=== PATIENT | male | born 1970 | race African-American/Black ===

== ENCOUNTER 2020-08-15 17:01 | Inpatient (IN) | payer OTHER ==
--- OUTSIDE RECORDS SUMMARY | 2020-08-15 17:13 | XMS ---
:1970 Author Organization [facility] Support Name Relationship Address Phone UE Unavailable Unavailable Unavailable SIMON GALLARDO SISTER [address] [phone] [place] [address] Re-disclosure Warning The records that you are about to access may contain information from federally- assisted alcohol or drug abuse programs. If such information is present, then the following federally mandated warning applies: This information has been disclosed to you from records protected by federal confidentiality rules (42 CFR part 2). The federal rules prohibit you from making any further disclosure of this information unless further disclosure is expressly permitted by the written consent of the person to whom it pertains or as otherwise permitted by 42 CFR part 2. A general authorization for the release of medical or other information is NOT sufficient for this purpose. The Federal rules restrict any use of the information to criminally investigate or prosecute any alcohol or drug abuse patient.The records that you are about to access may contain highly sensitive health information, the redisclosure of which is protected by Article 27-F of the [facility] Public Health law. If you continue you may haveaccess to information: Regarding HIV / AIDS; Provided by facilities licensed or operated by the [facility] Office of Mental Health; or Provided by the [facility] Office for People With Developmental Disabilities. If such information is present, then the following [facility] mandated warning applies: This information has been disclosed to you from confidential records which are protected by state law. State law prohibits you from making any further disclosure of this information without the specific written consent of the person to whom it pertains, or as otherwise permitted by law. Any unauthorized further disclosure in violation of state law may result in a fine or residential sentence or both. A general authorization for the release of medical or other information is NOT sufficient authorization for further disclosure. Insurance Providers Payer name Policy type Policy ID Covered Covered republican's Policy P klaudia / Coverage republican ID relationship to Jama Inf ormation type jama SELF PAY INSURANCE [place] [id number] [facility] Medicaid [id number] Regular Clinic Visit [place] [id number] S [id number] Healthcare [facility]D Community Plan Problems, Conditions, and Diagnoses Code Display Name Description Problem Type Effective Dates Data Source(s) M54.5 Low back pain Low back pain Diagnosis 01/23/2019 [place] ([facility] 06:49:14 PM [facility]) Results ID Date Data Source [id number] 05/02/2020 12:30:00 PM EDT [facility] Name Value Range Interpretation Description Data Sup porting Code Source(s) Document(s ) SARS [facility] CORONAVIRUS 2 RNA This lab was ordered by [facility] Milton Delgado and reported by [facility]. ID Date Data Source [id number] 04/16/2020 12:04:00 AM EDT [facility] Name Value Range Interpretation Code Description Data Sirisha rce(s) Supporting Document(s ) COV2 [facility] This lab was ordered by JOVAN gonzalez nd reported by [facility]. Procedure
--- NOTE | 2020-08-15 18:38 | BHS.RME ---
Substance Use & Tx History - Substance Use History Alcohol Substance amount: 1 pint Vodka Frequency of use: Daily Substance route: Oral Date of Last Use: 08/15/20 - Last Treatment Date of last treatment: 05/02/2020-05/05/2020 Treatment type: Substance Use Disorder (LEXI) Where was last treatment: Detox Physical/Psych/Mental Status - Behavior Eye Contact: Normal - Cooperativeness Cooperativeness: Cooperative - Thinking Thought Processes: Logical Thought content: Future oriented - Physical Health Problems Is patient presently having any pain?: No Does patient presently have any injuries (include location): No Does patient currently have a fever: No Is patient : No CIWA Nausea/Vomitin Muscle Tremors: 4-Moderate,w/Arms Extend Anxiety: 3 Agitation: 3 Paroxysmal Sweats: 2 Orientation: 0-Oriented Tacttile Disturbances: 0-None Auditory Disturbances: 0-None Visual Disturbances: 0-None Headache: 3-Moderate CIWA-Ar Total Score: 17 Treatment Recommendation - Level of Care Level of Care: Opioid Treatment Program (OTP) (Alcohol detoxification- on Methadone maintenance therapy)
--- NOTE | 2020-08-15 20:55 | HP ---
CIWA Score Nausea/Vomitin Muscle Tremors: 4-Moderate,w/Arms Extend Anxiety: 3 Agitation: 3 Paroxysmal Sweats: 2 Orientation: 0-Oriented Tacttile Disturbances: 0-None Auditory Disturbances: 0-None Visual Disturbances: 0-None Headache: 3-Moderate CIWA-Ar Total Score: 17 - Admission Criteria OASAS Guidelines: Admission for Medically Managed Detox: Requires at least one of the followin. CIWA greater than 12 2. Seizures within the past 24 hours 3. Delirium tremens within the past 24 hours 4. Hallucinations within the past 24 hours 5. Acute intervention needed for co occurring medical disorder 6. Acute intervention needed for co occurring psychiatric disorder 7. Severe withdrawal that cannot be handled at a lower level of care (continued vomiting, continued diarrhea, abnormal vital signs) requiring intravenous medication and/or fluids 8. Admitting History and Physical - Past Medical History Musculoskeletal: Yes: Chronic low back pain Rheumatology: Yes: Other (Osteoarthritis) - Past Surgical History Past Surgical History: Yes: None - Smoking History Smoking history: Former smoker Have you smoked in the past 12 months: Yes Aproximately how many cigarettes per day: 0 - Alcohol/Substance Use Hx Alcohol Use: No History of Substance Use: reports: Heroin, Tranquilizers - Social History ADL: Independent Occupation: highway maintenance supervisor History of Recent Travel: No Admission ROS [facility] - HPI Chief Complaint: Seeking admission to detox from alcohol, on Methadone maintenance therapy Allergies/Adverse Reactions: Allergies Allergy/AdvReac Type Severity Reaction Status Date / Time Fish Containing Products Allergy Severe Difficulty Verified 08/15/20 21:32 Breathing History of Present Illness: 49 years old male with a long history of alcohol dependence is seeking admission to detox. His last admission was for the period 05/02/2020 - 05/05/2020 and he reports that he relapsed in May 2020. He drinks 1 pint of vodka daily. He has medical history of hypertension, GERD, anemia, Gonorrhea, osteoarthritis, psych. history of depression, anxiety, insomnia and he denies suicidal ideation at this time. He is employed in maintenance, lives alone and denies legal issues. 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 He is on Methadone 60mg oral daily. Dose is yet to be confirmed by the nurse. Exam Limitations: No Limitations - Ebola screening Have you traveled outside of the country in the last 21 days: No Have you had contact with anyone from an Ebola affected area: No Have you been sick,other than usual withdrawal symptoms: No Do you have a fever: No - Review of Systems Constitutional: Chills, Malaise, Night Sweats, Changes in sleep EENT: reports: No Symptoms Reported Respiratory: reports: No Symptoms reported Cardiac: reports: No Symptoms Reported GI: reports: Constipated, Poor Appetite, Poor Fluid Intake, Abdominal cramping : reports: No Symptoms Reported Musculoskeletal: reports: Other (abdominal pain) Integumentary: reports: Dryness, Flushing Neuro: reports: Headache, Tremors Endocrine: reports: No Symptoms Reported Hematology: reports: No Symptoms Reported Psychiatric: reports: Orientated x3, Anxious Other Systems: Reviewed and Negative Patient History - Patient Medical History Hx Anemia: Yes (Not on medication) Hx Asthma: No Hx Chronic Obstructive Pulmonary Disease (COPD): No Hx Cancer: No Hx Cardiac Disorders: No Hx Congestive Heart Failure: No Hx Hypertension: Yes (Not on medication) Hx Hypercholesterolemia: No Hx Pacemaker: No HX Cerebrovascular Accident: No Hx Seizures: Yes (alcohol related-last episode was in 06/2020) Hx Dementia: No Hx Diabetes: No Hx Gastrointestinal Disorders: Yes (GERD- Not on medication) Hx Liver Disease: No Hx Genitourinary Disorders: No Hx Sexually Transmitted Disorders: Yes (Gonorrhea at age 16- Not treatment) Hx Renal Disease (ESRD): No Hx Thyroid Disease: No Hx Human Immunodeficiency Virus (HIV): No (Negative 2019) Hx Hepatitis C: No Hx Depression: Yes (Not on medication) Hx Suicide Attempt: No (Denies suicidal ideation ) Hx Bipolar Disorder: No Hx Schizophrenia: No - Patient Surgical History Past Surgical History: No Hx Neurologic Surgery: No Hx Cataract Extraction: No Hx Cardiac Surgery: No Hx Lung Surgery: No Hx Breast Surgery: No Hx Breast Biopsy: No Hx Abdominal Surgery: No Hx Appendectomy: No Hx Cholecystectomy: No Hx Genitourinary Surgery: No Hx Section: No Hx Orthopedic Surgery: No Anesthesia Reaction: No - PPD History Date: 05/04/20 Results: 0mm - Smoking Cessation Smoking history: Former smoker Have you smoked in the past 12 months: No Aproximately how many cigarettes per day: 0 Cigars Per Day: 0 Hx Chewing Tobacco Use: No Initiated information on smoking cessation: No Admission Physical Exam BHS - Physical General Appearance: Yes: Moderate Distress, Tremorous, Anxious HEENTM: Yes: Within Normal Limits Respiratory: Yes: Lungs Clear, Normal Breath Sounds, No Respiratory Distress Neck: Yes: Within Normal Limits Breast: Yes: Breast Exam Deferred Cardiology: Yes: Regular Rhythm, Regular Rate Genitourinary: Yes: Within Normal Limits Back: Yes: Normal Inspection Musculoskeletal: Yes: Back pain, Muscle Pain Extremities: Yes: Tremors Neurological: Yes: Within Normal Limits Integumentary: Yes: Warm Lymphatic: Yes: Within Normal Limits - Diagnostic (1) Alcohol dependence with withdrawal, uncomplicated Current Visit: Yes Status: Acute (2) GERD (gastroesophageal reflux disease) Current Visit: Yes Status: Chronic Qualifiers: Esophagitis presence: esophagitis presence not specified Qualified Code(s): K21.9 - Gastro-esophageal reflux disease without esophagitis (3) Alcohol related seizure Current Visit: Yes Status: Chronic (4) Gonorrhea Current Visit: Yes Status: Chronic (5) Depression Current Visit: Yes Status: Chronic Qualifiers: Depression Type: unspecified Qualified Code(s): F32.9 - Major depressive disorder, single episode, unspecified (6) Anxiety Current Visit: No Status: Acute (7) Hypertension Current Visit: Yes Status: Chronic Qualifiers: Hypertension type: essential hypertension Qualified Code(s): I10 - Essential (primary) hypertension (8) Nicotine dependence Current Visit: Yes Status: Chronic Qualifiers: Nicotine product type: cigarettes Substance use status: uncomplicated Qualified Code(s): F17.210 - Nicotine dependence, cigarettes, uncomplicated (9) Methadone maintenance therapy patient Current Visit: Yes Status: Chronic (10) Anemia Current Visit: Yes Status: Chronic Qualifiers: Anemia type: iron deficiency (11) Insomnia Current Visit: Yes Status: Chronic Qualifiers: Insomnia type: unspecified Qualified Code(s): G47.00 - Insomnia, unspecified (12) Osteoarthritis Current Visit: Yes Status: Chronic Qualifiers: Osteoarthritis location: unspecified site Osteoarthritis type: unspecified Qualified Code(s): M19.90 - Unspecified osteoarthritis, unspecified site Cleared for Admission [facility] - Detox or Rehab [facility] Level of Care: Medically Managed Detox Regimen/Protocol: Librium Claeared for Rehab Admission: No Breathalyzer - Breathalyzer Breathalyzer: 0.027 Urine Drug Screen - Test Device Lot number: [id number] Expiration date: 07/21/21 - Control Is test valid?: Yes - Results Drug screen NEGATIVE: No Urine drug screen results: FEN-Fentanyl, MOP-Opiates, MTD-Methadone, BZO- Benzodiazepines Inpatient Rehab Admission - Rehab Decision to Admit Inpatient rehab admission?: No
[2020-08-15] MEDS ORDERED: MAGNESIUM CITRATE 300 ML BOTTLE PO PRN (21:13)
[2020-08-15] MEDS ORDERED: MAG HYDROX/AL HYDROX/SIMETH 30 ML UNIT-DOSE CUP PO PRN (21:13)
[2020-08-15] MEDS ORDERED: NICOTINE POLACRILEX 2 MG GUM BUC PRN (21:13)
[2020-08-15] MEDS ORDERED: ONDANSETRON *ODT* 4 MG TABLET SL PRN (21:13)
[2020-08-15] MEDS ORDERED: IBUPROFEN 400 MG TABLET (FP) PO PRN (21:13)
[2020-08-15] MEDS ORDERED: MENTHOL/PHENOL 1 EACH UD MM PRN (21:13)
[2020-08-15] MEDS ORDERED: ACETAMINOPHEN 325 MG TABLET (FP) PO PRN ×2 (21:13)
[2020-08-15] MEDS ORDERED: BISMUTH SUBSALICYLATE 524 MG/30 ML UD PO PRN (21:13)
[2020-08-15] MEDS ORDERED: MAGNESIUM HYDROX 2400MG/30ML ORAL SUSPENSION 30 ML CUP PO PRN (21:13)
[2020-08-15] MEDS ORDERED: chlordiazePOXIDE HCL 25 MG CAPSULE PO PRN (21:13)
[2020-08-15 22:08] VITALS: BMI 23.5
[2020-08-15] MEDS: THIAMINE HCL 100 MG TABLET (FP) PO SCH (23:12)
[2020-08-15] MEDS: chlordiazePOXIDE HCL 25 MG CAPSULE PO SCH (23:12)
[2020-08-15] MEDS: MELATONIN 5 MG TABLETS PO SCH (23:13)
[2020-08-16] MEDS: chlordiazePOXIDE HCL 25 MG CAPSULE PO SCH ×4 (06:15→22:18)
[2020-08-16] MEDS: NICOTINE 14 MG/24 HOURS TOPICAL PATCH TD SCH (10:39)
[2020-08-16] MEDS: PRENATAL VITAMINS W/ FOLIC ACID TABLET (FP) PO SCH (10:39)
[2020-08-16] MEDS: METHOCARBAMOL 500 MG TABLET PO PRN (10:40)
[2020-08-16] MEDS: hydrOXYzine PAMOATE 25 MG CAPSULE (FP) PO PRN (10:40)
[2020-08-16] MEDS ORDERED: METHADONE HCL 40 MG DISPERSABLE TABLET PO SCH (11:00)
[2020-08-16] MEDS ORDERED: METHADONE HCL 10 MG TABLET ONE (11:23)
[2020-08-16] MEDS ORDERED: METHADONE HCL 40 MG DISPERSABLE TABLET ONE (11:24)
[2020-08-16] MEDS: METHADONE 40 MG, METHADONE 20 MG PO SCH (11:28)
[2020-08-16 11:49] LABS: HEMATOCRIT 35.6 % (35.4-49); HEMOGLOBIN 11.6 GM/dL (11.7-16.9); MCH 31.9 pg (25.7-33.7); MCHC 32.7 g/dl (32.0-35.9); MEAN CELL VOLUME 97.7 fl (80-96); MEAN PLT VOLUME 8.2 fl (7.5-11.1); PLATELET COUNT 247 K/MM3 (134-434); RBC 3.65 M/mm3 (4.00-5.60); RDW 13.5 % (11.9-15.9); WHITE BLOOD COUNT 4.5 K/mm3 (4.0-10.0)
[2020-08-16 11:55] LABS: ALBUMIN 3.2 g/dl (3.4-5.0); BILIRUBIN,TOTAL 0.3 mg/dL (0.2-1); BLOOD UREA NITROGEN 20.5 mg/dL (7-18); CALCIUM 8.6 mg/dL (8.5-10.1); CREATININE 1.2 mg/dL (0.55-1.3); POTASSIUM 4.4 mmol/L (3.5-5.1); TOT PROT 6.2 g/dl (6.4-8.2)
--- NOTE | 2020-08-16 12:25 | PN ---
S CIWA - CIWA Score Nausea/Vomitin-No Nausea/No Vomiting Muscle Tremors: 2 Anxiety: 3 Agitation: 0-Normal Activity Paroxysmal Sweats: 3 Orientation: 0-Oriented Tacttile Disturbances: 0-None Auditory Disturbances: 0-None Visual Disturbances: 0-None Headache: 2-Mild CIWA-Ar Total Score: 10 BHS Progress Note (SOAP) Subjective: c/o anxiety, sweats, and headache. Objective: 08/16/20 12:24 Laboratory Last Values WBC 4.5 K/mm3 (4.0-10.0) 08/16/20 07:50 RBC 3.65 M/mm3 (4.00-5.60) L 08/16/20 07:50 Hgb 11.6 GM/dL (11.7-16.9) L 08/16/20 07:50 Hct 35.6 % (35.4-49) 08/16/20 07:50 MCV 97.7 fl (80-96) H 08/16/20 07:50 MCH 31.9 pg (25.7-33.7) 08/16/20 07:50 MCHC 32.7 g/dl (32.0-35.9) 08/16/20 07:50 RDW 13.5 % (11.9-15.9) 08/16/20 07:50 Plt Count 247 K/MM3 (134-434) 08/16/20 07:50 MPV 8.2 fl (7.5-11.1) 08/16/20 07:50 Sodium 141 mmol/L (136-145) 08/16/20 07:50 Potassium 4.4 mmol/L (3.5-5.1) 08/16/20 07:50 Chloride 104 mmol/L (98-107) 08/16/20 07:50 Carbon Dioxide 33 mmol/L (21-32) H 08/16/20 07:50 Anion Gap 4 MMOL/L (8-16) L 08/16/20 07:50 BUN 20.5 mg/dL (7-18) H 08/16/20 07:50 Creatinine 1.2 mg/dL (0.55-1.3) 08/16/20 07:50 Est GFR (CKD-EPI)AfAm 81.23 08/16/20 07:50 Est GFR (CKD-EPI)NonAf 70.09 08/16/20 07:50 Random Glucose 88 mg/dL (74-106) 08/16/20 07:50 Calcium 8.6 mg/dL (8.5-10.1) 08/16/20 07:50 Total Bilirubin 0.3 mg/dL (0.2-1) 08/16/20 07:50 AST 10 U/L (15-37) L 08/16/20 07:50 ALT 13 U/L (13-61) 08/16/20 07:50 Alkaline Phosphatase 46 U/L (45-117) 08/16/20 07:50 Total Protein 6.2 g/dl (6.4-8.2) L 08/16/20 07:50 Albumin 3.2 g/dl (3.4-5.0) L 08/16/20 07:50 Labs noted. Assessment: 08/16/20 12:24 AOX3, in no acute respiratory distress. Full ROM, ambulating in the unit. Withdrawal symptoms. Plan: continue detox.
--- NOTE | 2020-08-16 12:52 | CONSULT ---
[facility] Psychiatric Consult - Data Date of interview: 08/16/20 Admission source: [facility] Identifying data: Revisit to [facility] and admission to [address] [place] [address] for this 49 y/o AA male self-referred for detoxification treatment. LEXI issues (as per self- report) : heroin, benzodiazepine (xanax bought from street dealers), alcohol, nicotine. Patient is single, a father of two, domiciled and currently employed. Lives indepedently in [place]. Substance Abuse History: Discussed with the patient. LEXI profile as follows : Smoking history: Former smoker. Have you smoked in the past 12 months: Yes. Approximately how many cigarettes per day: 0. Alcohol/Substance Use. Hx Alcohol Use: yes. Patient reports that he consumes 1-2 pints of vodka daily. Started during childhood (age 9-12). Used alcohol prior to this [facility] visit. History of Substance Use: reports: Heroin, Tranquilizers. Admits to using 2 bags of heroin on a daily basis in spite of being on methadone maintenance (60 mg/day) at the [facility] in [facility]. Buys xanax in the streets. Presents a pattern of multiple LEXI treatment failures. Medical History: Medical profile is remarkable for chronic lumbar pain, osteoarthritis, GERD, antecedent of alcohol withdrawal-related seizures, anemia and history of gonorrhea (age 16). Psychiatric History: Patient denies history of psychiatric hospitalizations. He admits to using xanax (bought in the streets) to address anxiety. Mr Real reports that his former primary care physician, Dr Bunn, had diagnosed him with Anxiety Disorder and " suggested " that he sees a psychiatrist for benzodia zepine scripts. Currently, the patient is on methadone maintenance (60 mg/day) at [facility] in [facility]. Not on any other psychotropic medication. Patient denies history of suicide attempts. Physical/Sexual Abuse/Trauma History: Patient denies. Additional Comment: Urine drug screen results: FEN-Fentanyl, MOP-Opiates, MTD- Methadone, BZO-Benzodiazepines. Noted. Mental Status Exam - Mental Status Exam Alert and Oriented to: Time, Place, Person Cognitive Function: Good Patient Appearance: Well Groomed Mood: Hopeful Affect: Appropriate, Normal Range Patient Behavior: Fatigued, Appropriate, Cooperative Speech Pattern: Clear, Appropriate Voice Loudness: Normal Thought Process: Intact, Goal Oriented Thought Disorder: Not Present Hallucinations: Denies Suicidal Ideation: Denies Homicidal Ideation: Denies Insight/Judgement: Poor Sleep: Fair Appetite: Good Gait/Station: Normal Psychiatric Findings - Problem List ([place] 1, 2,3) (1) Alcohol dependence with withdrawal, uncomplicated Current Visit: Yes Status: Acute (2) Opioid dependence on agonist therapy Current Visit: Yes Status: Chronic (3) Benzodiazepine abuse Current Visit: Yes Status: Chronic (4) Substance induced mood disorder Current Visit: Yes Status: Chronic (5) Insomnia Current Visit: Yes Status: Chronic Qualifiers: Insomnia type: unspecified Qualified Code(s): G47.00 - Insomnia, unspecified - Initial Treatment Plan Initial Treatment Plan: Psychoeducation. Sleep hygiene. Motivational counseling. Insomnia is addressed with melatonin at bedtime (with patient's consent). Detoxification in progress. Observation.
--- NOTE | 2020-08-16 16:14 | EKG ---
Test Reason : Blood Pressure : / mmHG Vent. Rate : 055 BPM Atrial Rate : 055 BPM P-R Int : 144 ms QRS Dur : 086 ms QT Int : 440 ms P-R-T Axes : 065 066 033 degrees QTc Int : 420 ms SINUS BRADYCARDIA MINIMAL VOLTAGE CRITERIA FOR LVH, MAY BE NORMAL VARIANT BORDERLINE ECG NO PREVIOUS ECGS AVAILABLE Confirmed by MD Eleuterio, Jb ([id number]) on 08/16/2020 4:14:12 PM Referred By: Chandler Murcia Confirmed By:Jb Mcclellan MD
[2020-08-16] MEDS: THIAMINE HCL 100 MG TABLET (FP) PO SCH (22:18)
[2020-08-16] MEDS: MELATONIN 5 MG TABLETS PO SCH (22:19)
[2020-08-17] MEDS ORDERED: METHADONE HCL 10 MG TABLET ONE (04:26)
[2020-08-17] MEDS ORDERED: METHADONE HCL 40 MG DISPERSABLE TABLET ONE (04:27)
[2020-08-17] MEDS: METHADONE 40 MG, METHADONE 20 MG PO SCH (06:52)
[2020-08-17] MEDS: chlordiazePOXIDE HCL 25 MG CAPSULE PO SCH ×4 (06:52→22:06)
[2020-08-17] MEDS: METHOCARBAMOL 500 MG TABLET PO PRN (10:08)
[2020-08-17] MEDS: PRENATAL VITAMINS W/ FOLIC ACID TABLET (FP) PO SCH (10:08)
[2020-08-17] MEDS: NICOTINE 14 MG/24 HOURS TOPICAL PATCH TD SCH (10:08)
--- NOTE | 2020-08-17 14:48 | PN ---
S CIWA - CIWA Score Nausea/Vomitin-Mild Nausea/No Vomiting Muscle Tremors: 2 Anxiety: 2 Agitation: 0-Normal Activity Paroxysmal Sweats: No Perspiration Orientation: 0-Oriented Tacttile Disturbances: 0-None Auditory Disturbances: 0-None Visual Disturbances: 2-Mild Sensitivity Headache: 2-Mild CIWA-Ar Total Score: 9 BHS Progress Note (SOAP) Subjective: 49 years old male was admitted on 08/05/20 for alcohol withdrawal sx management treating with librium detox regiment receiver[facility] methadone 60 mg po today feels better today ate breakfast and lunch in room social with peers in day room encourage reflect on current relaps and step toward prevention mr kim prefers returning to methadone program for behavior and psychosocial therapies Objective: 08/17/20 14:50 Vital Signs - 24 hr 08/16/20 08/16/20 08/17/20 16:46 20:34 05:46 Temperature 97.7 F 97.1 F L 97.5 F L Pulse Rate 60 67 51 L Respiratory 18 18 18 Rate Blood Pressure 122/86 115/77 125/83 O2 Sat by Pulse 97 98 Oximetry (%) 08/17/20 08/17/20 08:36 12:32 Temperature 97.1 F L 97.1 F L Pulse Rate 60 68 Respiratory 18 18 Rate Blood Pressure 126/80 125/81 O2 Sat by Pulse 98 Oximetry (%) Laboratory Tests 08/16/20 08/16/20 08/16/20 07:50 07:50 07:50 WBC 4.5 RBC 3.65 L Hgb 11.6 L Hct 35.6 MCV 97.7 H MCH 31.9 MCHC 32.7 RDW 13.5 Plt Count 247 MPV 8.2 Sodium 141 Potassium 4.4 Chloride 104 Carbon Dioxide 33 H Anion Gap 4 L BUN 20.5 H Creatinine 1.2 Est GFR (CKD-EPI)AfAm 81.23 Est GFR (CKD-EPI)NonAf 70.09 Random Glucose 88 Calcium 8.6 Total Bilirubin 0.3 AST 10 L ALT 13 Alkaline Phosphatase 46 Total Protein 6.2 L Albumin 3.2 L Syphilis Serology Non-reactive COVID-19 (RONNIE) 08/16/20 08:20 WBC RBC Hgb Hct MCV MCH MCHC RDW Plt Count MPV Sodium Potassium Chloride Carbon Dioxide Anion Gap BUN Creatinine Est GFR (CKD-EPI)AfAm Est GFR (CKD-EPI)NonAf Random Glucose Calcium Total Bilirubin AST ALT Alkaline Phosphatase Total Protein Albumin Syphilis Serology COVID-19 (RONNIE) Not detected lab noted Assessment: 08/17/20 14:50 alcohol withdrawal Plan: librium regiment
[2020-08-17] MEDS: hydrOXYzine PAMOATE 25 MG CAPSULE (FP) PO PRN (16:48)
[2020-08-17] MEDS: MELATONIN 5 MG TABLETS PO SCH (22:06)
[2020-08-17] MEDS: THIAMINE HCL 100 MG TABLET (FP) PO SCH (22:06)
[2020-08-18] MEDS ORDERED: chlordiazePOXIDE HCL 10 MG CAPSULE PO PRN
[2020-08-18] MEDS ORDERED: METHADONE HCL 10 MG TABLET ONE (04:17)
[2020-08-18] MEDS ORDERED: METHADONE HCL 40 MG DISPERSABLE TABLET ONE (04:17)
[2020-08-18] MEDS: METHADONE 40 MG, METHADONE 20 MG PO SCH (05:36)
[2020-08-18] MEDS: chlordiazePOXIDE HCL 10 MG CAPSULE PO SCH ×4 (05:36→22:27)
[2020-08-18] MEDS: PRENATAL VITAMINS W/ FOLIC ACID TABLET (FP) PO SCH (10:00)
[2020-08-18] MEDS: NICOTINE 14 MG/24 HOURS TOPICAL PATCH TD SCH (10:00)
--- NOTE | 2020-08-18 13:21 | PN ---
S CIWA - CIWA Score Nausea/Vomitin-No Nausea/No Vomiting Muscle Tremors: 2 Anxiety: 2 Agitation: 0-Normal Activity Paroxysmal Sweats: No Perspiration Orientation: 0-Oriented Tacttile Disturbances: 0-None Auditory Disturbances: 0-None Visual Disturbances: 1-Very Mild Sensitivity Headache: 1-Very Mild CIWA-Ar Total Score: 6 BHS Progress Note (SOAP) Subjective: 49 years old male was admitted on 08/15/20 for alcohol withdrawal sx management treating with librium detox regiment feels better today ate breakfast and lunch in room social with peers in day room mr kim prefers returning to his methadone program for behavioral and psychosocial therapies Objective: 08/18/20 13:25 Vital Signs - 24 hr 08/17/20 08/17/20 08/18/20 16:42 20:43 06:20 Temperature 97.5 F L 98.2 F 97.5 F L Pulse Rate 98 H 97 H 52 L Respiratory 18 18 18 Rate Blood Pressure 126/83 125/78 125/82 O2 Sat by Pulse 98 98 99 Oximetry (%) 08/18/20 09:07 Temperature 97.8 F Pulse Rate 66 Respiratory 18 Rate Blood Pressure 126/81 O2 Sat by Pulse 99 Oximetry (%) Laboratory Tests 08/16/20 08/16/20 08/16/20 07:50 07:50 07:50 WBC 4.5 RBC 3.65 L Hgb 11.6 L Hct 35.6 MCV 97.7 H MCH 31.9 MCHC 32.7 RDW 13.5 Plt Count 247 MPV 8.2 Sodium 141 Potassium 4.4 Chloride 104 Carbon Dioxide 33 H Anion Gap 4 L BUN 20.5 H Creatinine 1.2 Est GFR (CKD-EPI)AfAm 81.23 Est GFR (CKD-EPI)NonAf 70.09 Random Glucose 88 Calcium 8.6 Total Bilirubin 0.3 AST 10 L ALT 13 Alkaline Phosphatase 46 Total Protein 6.2 L Albumin 3.2 L Syphilis Serology Non-reactive COVID-19 (RONNIE) 08/16/20 08:20 WBC RBC Hgb Hct MCV MCH MCHC RDW Plt Count MPV Sodium Potassium Chloride Carbon Dioxide Anion Gap BUN Creatinine Est GFR (CKD-EPI)AfAm Est GFR (CKD-EPI)NonAf Random Glucose Calcium Total Bilirubin AST ALT Alkaline Phosphatase Total Protein Albumin Syphilis Serology COVID-19 (RONNIE) Not detected lab noted Assessment: 08/18/20 13:26 alcohol withdrawal Plan: librium regiment
[2020-08-18] MEDS: hydrOXYzine PAMOATE 25 MG CAPSULE (FP) PO PRN (16:48)
[2020-08-18] MEDS: METHOCARBAMOL 500 MG TABLET PO PRN (16:48)
[2020-08-18] MEDS: THIAMINE HCL 100 MG TABLET (FP) PO SCH (22:27)
[2020-08-18] MEDS: MELATONIN 5 MG TABLETS PO SCH (22:28)
[2020-08-19] MEDS ORDERED: METHADONE HCL 10 MG TABLET ONE (03:33)
[2020-08-19] MEDS ORDERED: METHADONE HCL 40 MG DISPERSABLE TABLET ONE (03:34)
[2020-08-19] MEDS ORDERED: chlordiazePOXIDE HCL 10 MG CAPSULE PO SCH (05:00)
[2020-08-19] MEDS: METHADONE 40 MG, METHADONE 20 MG PO SCH (05:14)
[2020-08-19 08:59] VITALS: BP 147/99; PULSE 60; TEMP 96.9
--- NOTE | 2020-08-19 09:51 | DS ---
[facility] Detox Discharge Summary Admission Date: 08/15/20 Discharge Date: 08/19/20 - History Present History: Alcohol Dependence, MMTP Additional Comments: alert,oriented x 3 ambulation on the unit lung clear on auscultation bilaterally abdomen soft,no pain,no distension no edema of leg no withdrawal symptom stable for discharge today follow up with methadone maintenance clinic total time of discharge 40 minutes lef tthe unit in stable condition has medication at home Pertinent Past History: alcohol related seizure nicotine dependence hypertension - Physical Exam Results Vital Signs: Vital Signs Temperature 96.9 F L 08/19/20 08:58 Pulse Rate 60 08/19/20 08:58 Respiratory Rate 16 08/19/20 08:58 Blood Pressure 147/99 08/19/20 08:58 O2 Sat by Pulse Oximetry (%) 98 08/19/20 08:58 Pertinent Admission Physical Exam Findings: withdrawal signs and symptom Vital Signs Temperature 96.9 F L 08/19/20 08:58 Pulse Rate 60 08/19/20 08:58 Respiratory Rate 16 08/19/20 08:58 Blood Pressure 147/99 08/19/20 08:58 O2 Sat by Pulse Oximetry (%) 98 08/19/20 08:58 Laboratory Last Values WBC 4.5 K/mm3 (4.0-10.0) 08/16/20 07:50 RBC 3.65 M/mm3 (4.00-5.60) L 08/16/20 07:50 Hgb 11.6 GM/dL (11.7-16.9) L 08/16/20 07:50 Hct 35.6 % (35.4-49) 08/16/20 07:50 MCV 97.7 fl (80-96) H 08/16/20 07:50 MCH 31.9 pg (25.7-33.7) 08/16/20 07:50 MCHC 32.7 g/dl (32.0-35.9) 08/16/20 07:50 RDW 13.5 % (11.9-15.9) 08/16/20 07:50 Plt Count 247 K/MM3 (134-434) 08/16/20 07:50 MPV 8.2 fl (7.5-11.1) 08/16/20 07:50 Sodium 141 mmol/L (136-145) 08/16/20 07:50 Potassium 4.4 mmol/L (3.5-5.1) 08/16/20 07:50 Chloride 104 mmol/L (98-107) 08/16/20 07:50 Carbon Dioxide 33 mmol/L (21-32) H 08/16/20 07:50 Anion Gap 4 MMOL/L (8-16) L 08/16/20 07:50 BUN 20.5 mg/dL (7-18) H 08/16/20 07:50 Creatinine 1.2 mg/dL (0.55-1.3) 08/16/20 07:50 Est GFR (CKD-EPI)AfAm 81.23 08/16/20 07:50 Est GFR (CKD-EPI)NonAf 70.09 08/16/20 07:50 Random Glucose 88 mg/dL (74-106) 08/16/20 07:50 Calcium 8.6 mg/dL (8.5-10.1) 08/16/20 07:50 Total Bilirubin 0.3 mg/dL (0.2-1) 08/16/20 07:50 AST 10 U/L (15-37) L 08/16/20 07:50 ALT 13 U/L (13-61) 08/16/20 07:50 Alkaline Phosphatase 46 U/L (45-117) 08/16/20 07:50 Total Protein 6.2 g/dl (6.4-8.2) L 08/16/20 07:50 Albumin 3.2 g/dl (3.4-5.0) L 08/16/20 07:50 Syphilis Serology Non-reactive (NONREACTIVE) 08/16/20 07:50 COVID-19 (RONNIE) Not detected (Not Detected) 08/16/20 08:20 - Treatment Hospital Course: Detox Protocol Followed, Detoxed Safely, Responded well, Discharged Condition Good Patient has Accepted a Rehab Referral to: declined - Medication Discharge Medications: Ambulatory Orders Metoprolol/Hydrochlorothiazide [Metoprolol-Hctz 100-25 mg Tab] 1 each PO DAILY 05/02/20 - Diagnosis (1) Alcohol dependence with withdrawal, uncomplicated Status: Acute (2) Alcohol related seizure Status: Chronic (3) Hypertension Status: Chronic Qualifiers: Hypertension type: essential hypertension Qualified Code(s): I10 - Essential (primary) hypertension (4) Opioid dependence on agonist therapy Status: Chronic (5) Hypertension Status: Acute - AMA Did Patient Leave Against Medical Advice: No
--- NOTE | 2020-08-19 09:51 | PN ---
[facility] CIWA - CIWA Score Nausea/Vomitin-No Nausea/No Vomiting Muscle Tremors: None Anxiety: 1-Mildly Anxious Agitation: 0-Normal Activity Paroxysmal Sweats: No Perspiration Orientation: 0-Oriented Tacttile Disturbances: 0-None Auditory Disturbances: 0-None Visual Disturbances: 0-None Headache: 0-None Present CIWA-Ar Total Score: 1 S Progress Note (SOAP) Subjective: alert,no complaint Objective: 08/19/20 17:07 Vital Signs Temperature 96.9 F L 08/19/20 08:58 Pulse Rate 60 08/19/20 08:58 Respiratory Rate 16 08/19/20 08:58 Blood Pressure 147/99 08/19/20 08:58 O2 Sat by Pulse Oximetry (%) 98 08/19/20 08:58 08/19/20 17:07 no withdrawal symptom Assessment: 08/19/20 17:08 no withdrawal symptom Plan: stable for discharge today,follow up with methadone maintenance clinic
[2020-08-19] MEDS ORDERED: METOPROLOL TARTRATE 50 MG TABLET (FP) PO SCH (10:00)
[2020-08-19] MEDS ORDERED: HYDROCHLOROTHIAZIDE 25 MG TABLET (FP) PO SCH (10:00)
[2020-08-19] MEDS: PRENATAL VITAMINS W/ FOLIC ACID TABLET (FP) PO SCH (10:33)
[2020-08-19] MEDS: NICOTINE 14 MG/24 HOURS TOPICAL PATCH TD SCH (10:33)
[2020-08-20] MEDS ORDERED: chlordiazePOXIDE HCL 10 MG CAPSULE PO ONE (05:00)
== END 2020-08-19 11:00 | disposition home or self-care (01) | DRG 773 ==
LOC: YASAS 17:01 → Y3N 21:46
PROVIDERS: ADMIT Allergy & Immunology; ATTEND Allergy & Immunology
PROC: HZ2ZZZZ Detoxification Services for Substance Abuse Treatment (ICD-10-PCS; principal; 2020-08-15)
DX: F10.230 Alcohol dependence with withdrawal, uncomplicated (principal); F11.20 Opioid dependence, uncomplicated; F13.20 Sedative, hypnotic or anxiolytic dependence, uncomplicated; F17.211 Nicotine dependence, cigarettes, in remission; F19.24 Other psychoactive substance dependence with psychoactive substance-induced mood disorder; F32.9 Major depressive disorder, single episode, unspecified; F41.9 Anxiety disorder, unspecified; A54.9 Gonococcal infection, unspecified; I10 Essential (primary) hypertension; D50.9 Iron deficiency anemia, unspecified; K21.9 Gastro-esophageal reflux disease without esophagitis; G47.00 Insomnia, unspecified; G40.509 Epileptic seizures related to external causes, not intractable, without status epilepticus; M19.90 Unspecified osteoarthritis, unspecified site; M54.5 Low back pain; G89.29 Other chronic pain; Z91.013 Allergy to seafood
CPT/HCPCS: 36415; 80053; 85027; 86780; 93005; 93010; U0003

== ENCOUNTER 2020-12-21 16:47 | Inpatient (IN) | payer OTHER ==
[2020-12-21 18:38] VITALS: BMI 20.8
[2020-12-21] MEDS ORDERED: chlordiazePOXIDE HCL 25 MG CAPSULE PO PRN (19:14)
[2020-12-21] MEDS ORDERED: guaiFENesin 200 MG/10 ML 10 ML UNIT-DOSE CUPS PO PRN (19:14)
[2020-12-21] MEDS ORDERED: MAGNESIUM CITRATE 300 ML BOTTLE PO PRN (19:14)
[2020-12-21] MEDS ORDERED: MENTHOL/PHENOL 1 EACH UD MM PRN (19:14)
[2020-12-21] MEDS ORDERED: MAGNESIUM HYDROX 2400MG/30ML ORAL SUSPENSION 30 ML CUP PO PRN (19:14)
[2020-12-21] MEDS ORDERED: NICOTINE POLACRILEX 4 MG GUM BUC PRN (19:14)
[2020-12-21] MEDS ORDERED: chlordiazePOXIDE HCL 25 MG CAPSULE PO ONE (19:14)
[2020-12-21] MEDS ORDERED: ONDANSETRON *ODT* 4 MG TABLET SL PRN (19:14)
[2020-12-21] MEDS ORDERED: BISMUTH SUBSALICYLATE 524 MG/30 ML UD PO PRN (19:14)
[2020-12-21] MEDS ORDERED: METHOCARBAMOL 500 MG TABLET PO PRN (19:14)
[2020-12-21] MEDS ORDERED: ACETAMINOPHEN 325 MG TABLET (FP) PO PRN ×2 (19:14)
[2020-12-21] MEDS ORDERED: MAG HYDROX/AL HYDROX/SIMETH 30 ML UNIT-DOSE CUP PO PRN (19:14)
[2020-12-21] MEDS ORDERED: PANTOPRAZOLE 20 MG TABLET PO ONE (19:19)
[2020-12-21] MEDS: chlordiazePOXIDE HCL 25 MG CAPSULE PO SCH (23:41)
[2020-12-21] MEDS: THIAMINE HCL 100 MG TABLET (FP) PO SCH (23:42)
[2020-12-21] MEDS: TOLNAFTATE 1% CREAM 15 GM TUBE TP SCH (23:42)
[2020-12-21] MEDS: MELATONIN 5 MG TABLETS PO SCH (23:42)
[2020-12-22] MEDS: chlordiazePOXIDE HCL 25 MG CAPSULE PO SCH ×4 (05:56→22:05)
[2020-12-22] MEDS: IBUPROFEN 400 MG TABLET (FP) PO PRN ×2 (05:57→22:08)
[2020-12-22] MEDS ORDERED: METHADONE HCL 10 MG TABLET PO ONE (09:50)
[2020-12-22] MEDS ORDERED: METHADONE HCL 10 MG TABLET ONE (10:02)
[2020-12-22] MEDS ORDERED: METHADONE HCL 40 MG DISPERSABLE TABLET ONE (10:02)
[2020-12-22] MEDS: PANTOPRAZOLE 40 MG TABLET PO SCH (10:04)
[2020-12-22] MEDS: PRENATAL VITAMINS W/ FOLIC ACID TABLET (FP) PO SCH (10:04)
[2020-12-22] MEDS: TOLNAFTATE 1% CREAM 15 GM TUBE TP SCH ×2 (10:06→22:09)
[2020-12-22] MEDS ORDERED: METHADONE 40 MG, METHADONE 30 MG PO ONE (10:15)
[2020-12-22 10:51] LABS: POTASSIUM 4.1 mmol/L (3.5-5.1)
[2020-12-22 10:54] LABS: ALBUMIN 3.4 g/dl (3.4-5.0); CALCIUM 9.1 mg/dL (8.5-10.1); HEMATOCRIT 34.6 % (35.4-49); HEMOGLOBIN 11.6 GM/dL (11.7-16.9); MCH 32.5 pg (25.7-33.7); MCHC 33.5 g/dl (32.0-35.9); MEAN PLT VOLUME 8.6 fl (7.5-11.1); PLATELET COUNT 272 K/MM3 (134-434); RBC 3.57 M/mm3 (4.00-5.60); RDW 13.3 % (11.9-15.9); WHITE BLOOD COUNT 5.5 K/mm3 (4.0-10.0)
[2020-12-22 10:55] LABS: BLOOD UREA NITROGEN 16.9 mg/dL (7-18)
[2020-12-22 10:58] LABS: BILIRUBIN,TOTAL 0.6 mg/dL (0.2-1); CREATININE 1.1 mg/dL (0.55-1.3)
[2020-12-22 10:59] LABS: TOT PROT 6.5 g/dl (6.4-8.2)
[2020-12-22] MEDS ORDERED: NIFEdipine E.R. 30 MG TABLET PO SCH (14:15)
[2020-12-22] MEDS ORDERED: amLODIPine BESYLATE 5 MG TABLET (FP) PO SCH (14:15)
[2020-12-22] MEDS: MELATONIN 5 MG TABLETS PO SCH (22:05)
[2020-12-22] MEDS: THIAMINE HCL 100 MG TABLET (FP) PO SCH (22:06)
[2020-12-23] MEDS ORDERED: METHADONE HCL 10 MG TABLET ONE (05:46)
[2020-12-23] MEDS ORDERED: METHADONE HCL 40 MG DISPERSABLE TABLET ONE (05:47)
[2020-12-23] MEDS ORDERED: METHADONE 40 MG, METHADONE 30 MG PO SCH (06:00)
[2020-12-23] MEDS ORDERED: METHADONE HCL 40 MG DISPERSABLE TABLET PO SCH (06:00)
[2020-12-23] MEDS: chlordiazePOXIDE HCL 25 MG CAPSULE PO SCH ×2 (06:17→10:08)
[2020-12-23] MEDS ORDERED: TAMSULOSIN HCL 0.4 MG CAP PO SCH (08:30)
[2020-12-23 09:25] VITALS: BP 135/83; PULSE 67; TEMP 98
[2020-12-23] MEDS: PRENATAL VITAMINS W/ FOLIC ACID TABLET (FP) PO SCH (10:07)
[2020-12-23] MEDS: PANTOPRAZOLE 40 MG TABLET PO SCH (10:07)
[2020-12-23] MEDS: TOLNAFTATE 1% CREAM 15 GM TUBE TP SCH (10:07)
[2020-12-24] MEDS ORDERED: chlordiazePOXIDE HCL 10 MG CAPSULE PO PRN
[2020-12-24] MEDS ORDERED: chlordiazePOXIDE HCL 10 MG CAPSULE PO SCH (05:00)
[2020-12-25] MEDS ORDERED: chlordiazePOXIDE HCL 10 MG CAPSULE PO SCH (05:00)
[2020-12-26] MEDS ORDERED: chlordiazePOXIDE HCL 10 MG CAPSULE PO ONE (05:00)
== END 2020-12-23 11:33 | disposition home or self-care (01) | DRG 773 ==
LOC: YASAS 16:47 → Y3N 18:18
PROVIDERS: ADMIT Allergy & Immunology; ATTEND Allergy & Immunology
PROC: HZ2ZZZZ Detoxification Services for Substance Abuse Treatment (ICD-10-PCS; principal; 2020-12-21)
DX: F10.230 Alcohol dependence with withdrawal, uncomplicated (principal); F13.230 Sedative, hypnotic or anxiolytic dependence with withdrawal, uncomplicated; F11.20 Opioid dependence, uncomplicated; F14.10 Cocaine abuse, uncomplicated; F17.210 Nicotine dependence, cigarettes, uncomplicated; F10.282 Alcohol dependence with alcohol-induced sleep disorder; F10.24 Alcohol dependence with alcohol-induced mood disorder; F51.05 Insomnia due to other mental disorder; F41.9 Anxiety disorder, unspecified; D61.9 Aplastic anemia, unspecified; D50.9 Iron deficiency anemia, unspecified; I10 Essential (primary) hypertension; M25.561 Pain in right knee; M17.11 Unilateral primary osteoarthritis, right knee; R56.9 Unspecified convulsions; N40.0 Benign prostatic hyperplasia without lower urinary tract symptoms; M54.5 Low back pain; G89.29 Other chronic pain; J34.89 Other specified disorders of nose and nasal sinuses; R63.4 Abnormal weight loss; Z68.20 Body mass index [BMI] 20.0-20.9, adult; Z86.19 Personal history of other infectious and parasitic diseases; Z91.018 Allergy to other foods
CPT/HCPCS: 36415; 80053; 85027; 86780; 93005; 93010

== ENCOUNTER 2021-05-22 12:58 | Inpatient (IN) | payer OTHER ==
[2021-05-22 14:33] VITALS: BMI 21.2
[2021-05-23] MEDS ORDERED: MAGNESIUM HYDROX 2400MG/30ML ORAL SUSPENSION 30 ML CUP PO PRN (02:02)
[2021-05-23] MEDS ORDERED: BISMUTH SUBSALICYLATE 524 MG/30 ML PO PRN (02:02)
[2021-05-23] MEDS ORDERED: ACETAMINOPHEN 325 MG TABLET (FP) PO PRN ×2 (02:02)
[2021-05-23] MEDS ORDERED: MAGNESIUM CITRATE 300 ML BOTTLE PO PRN (02:02)
[2021-05-23] MEDS ORDERED: MENTHOL/PHENOL 1 EACH UD MM PRN (02:02)
[2021-05-23] MEDS ORDERED: ONDANSETRON *ODT* 4 MG TABLET SL PRN (02:02)
[2021-05-23] MEDS ORDERED: MAG HYDROX/AL HYDROX/SIMETH 30 ML UNIT-DOSE CUP PO PRN (02:02)
[2021-05-23] MEDS ORDERED: NICOTINE POLACRILEX 2 MG GUM BUC PRN (02:02)
[2021-05-23] MEDS ORDERED: diazePAM 5 MG TABLET ONE ×2 (05:51→10:14)
[2021-05-23] MEDS: diazePAM 5 MG TABLET PO SCH ×4 (06:35→22:21)
[2021-05-23] MEDS ORDERED: METHADONE HCL 10 MG TABLET PO ONE (09:09)
[2021-05-23] MEDS: NICOTINE 14 MG/24 HOURS TOPICAL PATCH TD SCH (11:02)
[2021-05-23] MEDS ORDERED: METHADONE HCL 40 MG DISPERSABLE TABLET ONE (11:03)
[2021-05-23] MEDS ORDERED: METHADONE HCL 10 MG TABLET ONE (11:03)
[2021-05-23] MEDS ORDERED: METHADONE HCL 5 MG TABLET ONE (11:04)
[2021-05-23] MEDS: METHOCARBAMOL 500 MG TABLET PO PRN (11:04)
[2021-05-23] MEDS: PRENATAL VITAMINS W/ FOLIC ACID TABLET (FP) PO SCH (11:05)
[2021-05-23] MEDS: IBUPROFEN 400 MG TABLET (FP) PO PRN (11:06)
[2021-05-23] MEDS ORDERED: METHADONE 40 MG, METHADONE 30 MG, METHADONE 5 MG PO ONE (11:15)
[2021-05-23] MEDS: diazePAM 5 MG TABLET PO PRN (15:13)
[2021-05-23] MEDS: THIAMINE HCL 100 MG TABLET (FP) PO SCH (22:21)
[2021-05-23] MEDS: MELATONIN 5 MG TABLETS PO SCH (22:21)
[2021-05-24] MEDS ORDERED: METHADONE HCL 10 MG TABLET ONE (04:25)
[2021-05-24] MEDS ORDERED: METHADONE HCL 40 MG DISPERSABLE TABLET ONE (04:25)
[2021-05-24] MEDS ORDERED: METHADONE HCL 5 MG TABLET ONE (04:26)
[2021-05-24] MEDS: diazePAM 5 MG TABLET PO SCH ×3 (05:23→22:51)
[2021-05-24] MEDS ORDERED: METHADONE HCL 10 MG TABLET PO ONE (06:00)
[2021-05-24] MEDS ORDERED: METHADONE 40 MG, METHADONE 30 MG, METHADONE 5 MG PO ONE (06:00)
[2021-05-24] MEDS: NICOTINE 14 MG/24 HOURS TOPICAL PATCH TD SCH (10:31)
[2021-05-24] MEDS: PRENATAL VITAMINS W/ FOLIC ACID TABLET (FP) PO SCH (10:32)
[2021-05-24] MEDS: amLODIPine BESYLATE 5 MG TABLET (FP) PO SCH (10:33)
[2021-05-24] MEDS: METHOCARBAMOL 500 MG TABLET PO PRN ×2 (10:33→22:51)
[2021-05-24] MEDS: IBUPROFEN 400 MG TABLET (FP) PO PRN (10:33)
[2021-05-24] MEDS: diazePAM 5 MG TABLET PO PRN ×2 (10:34→18:03)
[2021-05-24] MEDS: CLOTRIMAZOLE 1% CREAM 15 GM TUBE TP SCH ×2 (14:05→22:49)
[2021-05-24] MEDS ORDERED: MASKS NR ONE (18:43)
[2021-05-24] MEDS: MELATONIN 5 MG TABLETS PO SCH (22:50)
[2021-05-24] MEDS: THIAMINE HCL 100 MG TABLET (FP) PO SCH (22:50)
[2021-05-25] MEDS ORDERED: METHADONE HCL 10 MG TABLET ONE (04:51)
[2021-05-25] MEDS ORDERED: METHADONE HCL 5 MG TABLET ONE (04:52)
[2021-05-25] MEDS ORDERED: METHADONE HCL 40 MG DISPERSABLE TABLET ONE (04:52)
[2021-05-25] MEDS: diazePAM 5 MG TABLET PO SCH ×2 (05:45→17:19)
[2021-05-25] MEDS ORDERED: METHADONE HCL 10 MG TABLET PO ONE (06:00)
[2021-05-25] MEDS ORDERED: METHADONE 40 MG, METHADONE 30 MG, METHADONE 5 MG PO ONE (06:00)
[2021-05-25] MEDS: amLODIPine BESYLATE 5 MG TABLET (FP) PO SCH (10:31)
[2021-05-25] MEDS: CLOTRIMAZOLE 1% CREAM 15 GM TUBE TP SCH ×2 (10:31→22:17)
[2021-05-25] MEDS: PRENATAL VITAMINS W/ FOLIC ACID TABLET (FP) PO SCH (10:31)
[2021-05-25] MEDS: NICOTINE 14 MG/24 HOURS TOPICAL PATCH TD SCH (10:32)
[2021-05-25] MEDS: IBUPROFEN 400 MG TABLET (FP) PO PRN (19:29)
[2021-05-25 20:06] LABS: HEMATOCRIT 38.3 % (35.4-49); HEMOGLOBIN 12.6 GM/dL (11.7-16.9); MCHC 32.8 g/dl (32.0-35.9); MEAN CELL VOLUME 97.4 fl (80-96); MEAN PLT VOLUME 8.8 fl (7.5-11.1); PLATELET COUNT 246 10^3/uL (134-434); RBC 3.93 M/mm3 (4.00-5.60); RDW 13.2 % (11.9-15.9); WHITE BLOOD COUNT 6.2 K/mm3 (4.0-10.0)
[2021-05-25 20:36] LABS: ALBUMIN 3.6 g/dl (3.4-5.0); CALCIUM 8.8 mg/dL (8.5-10.1)
[2021-05-25 20:37] LABS: BLOOD UREA NITROGEN 16.6 mg/dL (7-18)
[2021-05-25 20:40] LABS: CREATININE 0.9 mg/dL (0.55-1.3)
[2021-05-25 20:41] LABS: BILIRUBIN,TOTAL 0.2 mg/dL (0.2-1); TOT PROT 7.2 g/dl (6.4-8.2)
[2021-05-25] MEDS: MELATONIN 5 MG TABLETS PO SCH (22:18)
[2021-05-25] MEDS: THIAMINE HCL 100 MG TABLET (FP) PO SCH (22:18)
[2021-05-25] MEDS: METHOCARBAMOL 500 MG TABLET PO PRN (22:19)
[2021-05-25] MEDS: diazePAM 5 MG TABLET PO PRN (22:21)
[2021-05-26] MEDS ORDERED: diazePAM 5 MG TABLET PO ONE (06:00)
[2021-05-26] MEDS ORDERED: METHADONE HCL 10 MG TABLET PO ONE (07:53)
[2021-05-26] MEDS ORDERED: METHADONE 40 MG, METHADONE 30 MG, METHADONE 5 MG PO ONE (08:20)
[2021-05-26] MEDS ORDERED: METHADONE HCL 40 MG DISPERSABLE TABLET ONE (08:48)
[2021-05-26] MEDS ORDERED: METHADONE HCL 5 MG TABLET ONE (08:48)
[2021-05-26] MEDS ORDERED: METHADONE HCL 10 MG TABLET ONE (08:48)
[2021-05-26 09:21] VITALS: BP 126/87; PULSE 58; TEMP 96.9
== END 2021-05-26 09:34 | disposition home or self-care (01) | DRG 773 ==
LOC: YASAS 12:58 → Y3N 05-23 09:29
PROVIDERS: ADMIT Allergy & Immunology; ATTEND Allergy & Immunology
PROC: HZ2ZZZZ Detoxification Services for Substance Abuse Treatment (ICD-10-PCS; principal; 2021-05-23)
DX: F10.230 Alcohol dependence with withdrawal, uncomplicated (principal); F13.230 Sedative, hypnotic or anxiolytic dependence with withdrawal, uncomplicated; F11.20 Opioid dependence, uncomplicated; F17.210 Nicotine dependence, cigarettes, uncomplicated; F41.9 Anxiety disorder, unspecified; F32.9 Major depressive disorder, single episode, unspecified; F19.24 Other psychoactive substance dependence with psychoactive substance-induced mood disorder; I10 Essential (primary) hypertension; K21.9 Gastro-esophageal reflux disease without esophagitis; G47.00 Insomnia, unspecified; Z86.69 Personal history of other diseases of the nervous system and sense organs; Z87.438 Personal history of other diseases of male genital organs; Z91.013 Allergy to seafood; Z56.0 Unemployment, unspecified
CPT/HCPCS: 36415; 80053; 85027; 86780; C9803; U0003; U0005

== ENCOUNTER 2021-09-09 22:13 | Inpatient (IN) | payer OTHER ==
[2021-09-09 22:39] VITALS: BMI 21.3
[2021-09-09] MEDS ORDERED: MAGNESIUM CITRATE 300 ML BOTTLE PO PRN (22:48)
[2021-09-09] MEDS ORDERED: BISMUTH SUBSALICYLATE 524 MG/30 ML PO PRN (22:48)
[2021-09-09] MEDS ORDERED: ACETAMINOPHEN 325 MG TABLET (FP) PO PRN ×2 (22:48)
[2021-09-09] MEDS ORDERED: NICOTINE POLACRILEX 2 MG GUM BUC PRN (22:48)
[2021-09-09] MEDS ORDERED: ONDANSETRON *ODT* 4 MG TABLET SL PRN (22:48)
[2021-09-09] MEDS ORDERED: NICOTINE 10 MG CARTRIDGE (INHALER) IH PRN (22:48)
[2021-09-09] MEDS ORDERED: MAGNESIUM HYDROX 2400MG/30ML ORAL SUSPENSION 30 ML CUP PO PRN (22:48)
[2021-09-09] MEDS ORDERED: MENTHOL/PHENOL 1 EACH UD MM PRN (22:48)
[2021-09-09] MEDS ORDERED: MAG HYDROX/AL HYDROX/SIMETH 30 ML UNIT-DOSE CUP PO PRN (22:48)
[2021-09-09] MEDS ORDERED: diazePAM 5 MG TABLET ONE (23:15)
[2021-09-09] MEDS: diazePAM 5 MG TABLET PO SCH (23:19)
[2021-09-10] MEDS ORDERED: diazePAM 5 MG TABLET ONE ×2 (05:27→10:47)
[2021-09-10] MEDS: diazePAM 5 MG TABLET PO SCH ×4 (05:32→22:36)
[2021-09-10] MEDS ORDERED: methaDONE HCL 10 MG TABLET PO SCH (10:15)
[2021-09-10] MEDS ORDERED: methaDONE HCL 10 MG TABLET ONE (10:38)
[2021-09-10] MEDS ORDERED: methaDONE HCL 40 MG DISPERSABLE TABLET ONE (10:40)
[2021-09-10] MEDS ORDERED: amLODIPine BESYLATE 5 MG TABLET (FP) ONE (10:47)
[2021-09-10] MEDS: PRENATAL VITAMINS W/ FOLIC ACID TABLET (FP) PO SCH (10:55)
[2021-09-10] MEDS ORDERED: amLODIPine BESYLATE 5 MG TABLET (FP) PO SCH ×2 (10:59→11:25)
[2021-09-10 11:08] LABS: ALBUMIN 3.4 g/dl (3.4-5.0); BLOOD UREA NITROGEN 23.4 mg/dL (7-18)
[2021-09-10 11:11] LABS: CREATININE 1.4 mg/dL (0.55-1.3)
[2021-09-10 11:12] LABS: BILIRUBIN,TOTAL 0.5 mg/dL (0.2-1); TOT PROT 6.9 g/dl (6.4-8.2)
[2021-09-10 11:17] LABS: HEMATOCRIT 37.4 % (35.4-49); HEMOGLOBIN 12.3 GM/dL (11.7-16.9); MCHC 32.8 g/dl (32.0-35.9); MEAN CELL VOLUME 100.4 fl (80-96); MEAN PLT VOLUME 8.7 fl (7.5-11.1); PLATELET COUNT 255 10^3/uL (134-434); RBC 3.73 M/mm3 (4.00-5.60); RDW 13.2 % (11.9-15.9); WHITE BLOOD COUNT 7.7 K/mm3 (4.0-10.0)
[2021-09-10] MEDS ORDERED: amLODIPine BESYLATE 5 MG TABLET (FP) PO STA (11:34)
[2021-09-10] MEDS: MELATONIN 5 MG TABLETS PO SCH (22:35)
[2021-09-10] MEDS: THIAMINE HCL 100 MG TABLET (FP) PO SCH (22:35)
[2021-09-11] MEDS ORDERED: methaDONE HCL 40 MG DISPERSABLE TABLET ONE (04:06)
[2021-09-11] MEDS ORDERED: methaDONE HCL 10 MG TABLET ONE (04:06)
[2021-09-11] MEDS: diazePAM 5 MG TABLET PO SCH ×3 (05:28→22:24)
[2021-09-11] MEDS ORDERED: amLODIPine BESYLATE 5 MG TABLET (FP) PO SCH (10:00)
[2021-09-11] MEDS: diazePAM 5 MG TABLET PO PRN (10:09)
[2021-09-11] MEDS: amLODIPine BESYLATE 5 MG TABLET (FP) PO SCH (10:09)
[2021-09-11] MEDS: TAMSULOSIN HCL 0.4 MG CAP PO SCH (10:09)
[2021-09-11] MEDS: PRENATAL VITAMINS W/ FOLIC ACID TABLET (FP) PO SCH (10:09)
[2021-09-11] MEDS ORDERED: PANTOPRAZOLE 40 MG TABLET PO ONE (11:27)
[2021-09-11] MEDS: METHOCARBAMOL 500 MG TABLET PO PRN (15:15)
[2021-09-11] MEDS: IBUPROFEN 400 MG TABLET (FP) PO PRN (18:17)
[2021-09-11] MEDS: MELATONIN 5 MG TABLETS PO SCH (22:23)
[2021-09-11] MEDS: THIAMINE HCL 100 MG TABLET (FP) PO SCH (22:23)
[2021-09-12] MEDS: METHOCARBAMOL 500 MG TABLET PO PRN ×2 (03:29→22:09)
[2021-09-12] MEDS ORDERED: methaDONE HCL 40 MG DISPERSABLE TABLET ONE (04:49)
[2021-09-12] MEDS ORDERED: methaDONE HCL 10 MG TABLET ONE (04:49)
[2021-09-12] MEDS: diazePAM 5 MG TABLET PO SCH ×2 (05:18→17:15)
[2021-09-12] MEDS: TAMSULOSIN HCL 0.4 MG CAP PO SCH (07:31)
[2021-09-12] MEDS: PANTOPRAZOLE 40 MG TABLET PO SCH (10:20)
[2021-09-12] MEDS: amLODIPine BESYLATE 5 MG TABLET (FP) PO SCH (10:21)
[2021-09-12] MEDS: diazePAM 5 MG TABLET PO PRN ×3 (10:21→22:13)
[2021-09-12] MEDS: PRENATAL VITAMINS W/ FOLIC ACID TABLET (FP) PO SCH (10:22)
[2021-09-12] MEDS: IBUPROFEN 400 MG TABLET (FP) PO PRN (14:18)
[2021-09-12] MEDS: MELATONIN 5 MG TABLETS PO SCH (22:10)
[2021-09-12] MEDS: THIAMINE HCL 100 MG TABLET (FP) PO SCH (22:11)
[2021-09-13] MEDS ORDERED: methaDONE HCL 10 MG TABLET ONE (04:29)
[2021-09-13] MEDS ORDERED: methaDONE HCL 40 MG DISPERSABLE TABLET ONE (04:30)
[2021-09-13] MEDS ORDERED: diazePAM 5 MG TABLET PO ONE (06:00)
[2021-09-13 09:01] VITALS: BP 134/93; PULSE 63; TEMP 96.6
[2021-09-13] MEDS: PANTOPRAZOLE 40 MG TABLET PO SCH (09:28)
[2021-09-13] MEDS: PRENATAL VITAMINS W/ FOLIC ACID TABLET (FP) PO SCH (09:28)
[2021-09-13] MEDS: TAMSULOSIN HCL 0.4 MG CAP PO SCH (09:28)
[2021-09-13] MEDS: amLODIPine BESYLATE 5 MG TABLET (FP) PO SCH (09:28)
== END 2021-09-13 09:46 | disposition home or self-care (01) | DRG 773 ==
LOC: YASAS 22:13 → Y3N 09-10 11:18
PROVIDERS: ADMIT Allergy & Immunology; ATTEND Allergy & Immunology
PROC: HZ2ZZZZ Detoxification Services for Substance Abuse Treatment (ICD-10-PCS; principal; 2021-09-10)
DX: F10.230 Alcohol dependence with withdrawal, uncomplicated (principal); F11.20 Opioid dependence, uncomplicated; F13.230 Sedative, hypnotic or anxiolytic dependence with withdrawal, uncomplicated; F17.210 Nicotine dependence, cigarettes, uncomplicated; F19.24 Other psychoactive substance dependence with psychoactive substance-induced mood disorder; F41.9 Anxiety disorder, unspecified; F32.A Depression, unspecified; N17.9 Acute kidney failure, unspecified; D50.9 Iron deficiency anemia, unspecified; I10 Essential (primary) hypertension; G40.909 Epilepsy, unspecified, not intractable, without status epilepticus; K21.9 Gastro-esophageal reflux disease without esophagitis; M17.11 Unilateral primary osteoarthritis, right knee; N40.0 Benign prostatic hyperplasia without lower urinary tract symptoms; Z86.69 Personal history of other diseases of the nervous system and sense organs; Z91.013 Allergy to seafood
CPT/HCPCS: 36415; 80053; 85027; 86780; C9803; U0003; U0005

== ENCOUNTER 2021-10-02 12:52 | Inpatient (IN) | payer OTHER ==
[2021-10-02] MEDS ORDERED: ONDANSETRON *ODT* 4 MG TABLET SL PRN (14:13)
[2021-10-02] MEDS ORDERED: ACETAMINOPHEN 325 MG TABLET (FP) PO PRN (14:13)
[2021-10-02] MEDS ORDERED: MAG HYDROX/AL HYDROX/SIMETH 30 ML UNIT-DOSE CUP PO PRN (14:13)
[2021-10-02] MEDS ORDERED: diazePAM 5 MG TABLET PO ONE (14:13)
[2021-10-02] MEDS ORDERED: NICOTINE 10 MG CARTRIDGE (INHALER) IH PRN (14:13)
[2021-10-02] MEDS ORDERED: MENTHOL/PHENOL 1 EACH UD MM PRN (14:13)
[2021-10-02] MEDS ORDERED: MAGNESIUM CITRATE 300 ML BOTTLE PO PRN (14:13)
[2021-10-02] MEDS ORDERED: BISMUTH SUBSALICYLATE 262 MG/15 ML BTL PO PRN (14:13)
[2021-10-02] MEDS ORDERED: MAGNESIUM HYDROX 2400MG/30ML ORAL SUSPENSION 30 ML CUP PO PRN (14:13)
[2021-10-02 14:18] VITALS: BMI 21.1
[2021-10-02 16:56] LABS: HEMATOCRIT 38.4 % (35.4-49); HEMOGLOBIN 12.7 GM/dL (11.7-16.9); MCH 32.9 pg (25.7-33.7); MCHC 33.1 g/dl (32.0-35.9); MEAN CELL VOLUME 99.3 fl (80-96); MEAN PLT VOLUME 8.2 fl (7.5-11.1); PLATELET COUNT 308 10^3/uL (134-434); RBC 3.87 M/mm3 (4.00-5.60); RDW 12.9 % (11.9-15.9); WHITE BLOOD COUNT 7.4 K/mm3 (4.0-10.0)
[2021-10-02 17:00] LABS: ALBUMIN 4.2 g/dl (3.4-5.0); CALCIUM 9.7 mg/dL (8.5-10.1)
[2021-10-02 17:05] LABS: BILIRUBIN,TOTAL 0.9 mg/dL (0.2-1); TOT PROT 8.3 g/dl (6.4-8.2)
[2021-10-02] MEDS: diazePAM 5 MG TABLET PO SCH ×2 (17:24→22:27)
[2021-10-02] MEDS: hydrOXYzine PAMOATE 25 MG CAPSULE (FP) PO SCH ×2 (17:24→22:27)
[2021-10-02] MEDS ORDERED: MELATONIN 5 MG TABLETS PO SCH (22:00)
[2021-10-02] MEDS: MELATONIN 5 MG TABLETS PO SCH (22:26)
[2021-10-02] MEDS: THIAMINE HCL 100 MG TABLET (FP) PO SCH (22:27)
[2021-10-03] MEDS: diazePAM 5 MG TABLET PO SCH ×4 (05:36→22:14)
[2021-10-03] MEDS: hydrOXYzine PAMOATE 25 MG CAPSULE (FP) PO SCH (05:36)
[2021-10-03] MEDS: methaDONE HCL 40 MG DISPERSABLE TABLET PO SCH (07:51)
[2021-10-03] MEDS: TAMSULOSIN HCL 0.4 MG CAP PO SCH (07:53)
[2021-10-03] MEDS: PRENATAL VITAMINS W/ FOLIC ACID TABLET (FP) PO SCH (10:19)
[2021-10-03] MEDS: amLODIPine BESYLATE 5 MG TABLET (FP) PO SCH (10:20)
[2021-10-03] MEDS: ACETAMINOPHEN 325 MG TABLET (FP) PO PRN (11:30)
[2021-10-03] MEDS: MELATONIN 5 MG TABLETS PO SCH (22:14)
[2021-10-03] MEDS: THIAMINE HCL 100 MG TABLET (FP) PO SCH (22:14)
[2021-10-04] MEDS: methaDONE HCL 40 MG DISPERSABLE TABLET PO SCH (05:17)
[2021-10-04] MEDS: diazePAM 5 MG TABLET PO SCH ×3 (05:17→22:23)
[2021-10-04] MEDS: METHOCARBAMOL 500 MG TABLET PO PRN (05:17)
[2021-10-04] MEDS: diazePAM 5 MG TABLET PO PRN ×2 (09:33→17:24)
[2021-10-04] MEDS: PRENATAL VITAMINS W/ FOLIC ACID TABLET (FP) PO SCH (09:34)
[2021-10-04] MEDS: amLODIPine BESYLATE 5 MG TABLET (FP) PO SCH (09:34)
[2021-10-04] MEDS: TAMSULOSIN HCL 0.4 MG CAP PO SCH (09:34)
[2021-10-04] MEDS: MELATONIN 5 MG TABLETS PO SCH (22:21)
[2021-10-04] MEDS: THIAMINE HCL 100 MG TABLET (FP) PO SCH (22:22)
[2021-10-05] MEDS: methaDONE HCL 40 MG DISPERSABLE TABLET PO SCH (05:26)
[2021-10-05] MEDS: diazePAM 5 MG TABLET PO SCH ×2 (05:27→17:28)
[2021-10-05] MEDS: ACETAMINOPHEN 325 MG TABLET (FP) PO PRN (08:44)
[2021-10-05] MEDS: TAMSULOSIN HCL 0.4 MG CAP PO SCH (10:36)
[2021-10-05] MEDS: amLODIPine BESYLATE 5 MG TABLET (FP) PO SCH (10:36)
[2021-10-05] MEDS: diazePAM 5 MG TABLET PO PRN (10:36)
[2021-10-05] MEDS: PRENATAL VITAMINS W/ FOLIC ACID TABLET (FP) PO SCH (10:37)
[2021-10-05] MEDS: FLUTICASONE PROP 0.05% 16 GM NASAL SPRAY NS SCH ×2 (10:39→22:21)
[2021-10-05] MEDS: METHOCARBAMOL 500 MG TABLET PO PRN (22:20)
[2021-10-05] MEDS: THIAMINE HCL 100 MG TABLET (FP) PO SCH (22:20)
[2021-10-05] MEDS: MELATONIN 5 MG TABLETS PO SCH (22:20)
[2021-10-06] MEDS ORDERED: hydrOXYzine PAMOATE 25 MG CAPSULE (FP) PO ONE (01:40)
[2021-10-06] MEDS ORDERED: MELATONIN 5 MG TABLETS PO ONE (01:40)
[2021-10-06] MEDS: methaDONE HCL 40 MG DISPERSABLE TABLET PO SCH (05:26)
[2021-10-06] MEDS ORDERED: diazePAM 5 MG TABLET PO ONE (06:00)
[2021-10-06] MEDS: TAMSULOSIN HCL 0.4 MG CAP PO SCH (10:18)
[2021-10-06] MEDS: PRENATAL VITAMINS W/ FOLIC ACID TABLET (FP) PO SCH (10:18)
[2021-10-06] MEDS: FLUTICASONE PROP 0.05% 16 GM NASAL SPRAY NS SCH ×2 (10:18→22:36)
[2021-10-06] MEDS: amLODIPine BESYLATE 5 MG TABLET (FP) PO SCH (10:18)
[2021-10-06] MEDS: IBUPROFEN 400 MG TABLET (FP) PO PRN ×2 (12:38→22:34)
[2021-10-06] MEDS: METHOCARBAMOL 500 MG TABLET PO PRN ×2 (17:24→23:47)
[2021-10-06] MEDS: THIAMINE HCL 100 MG TABLET (FP) PO SCH (22:32)
[2021-10-06] MEDS: MELATONIN 5 MG TABLETS PO SCH (22:36)
[2021-10-07] MEDS: methaDONE HCL 40 MG DISPERSABLE TABLET PO SCH (05:26)
[2021-10-07] MEDS: IBUPROFEN 400 MG TABLET (FP) PO PRN (05:27)
[2021-10-07 08:45] VITALS: BP 148/97; PULSE 68; TEMP 96.9
[2021-10-07] MEDS: FLUTICASONE PROP 0.05% 16 GM NASAL SPRAY NS SCH (10:06)
[2021-10-07] MEDS: PRENATAL VITAMINS W/ FOLIC ACID TABLET (FP) PO SCH (10:06)
[2021-10-07] MEDS: TAMSULOSIN HCL 0.4 MG CAP PO SCH (10:06)
[2021-10-07] MEDS: amLODIPine BESYLATE 5 MG TABLET (FP) PO SCH (10:06)
== END 2021-10-07 10:55 | disposition home or self-care (01) | DRG 773 ==
LOC: YASAS 12:52 → Y3N 14:04
PROVIDERS: ADMIT Allergy & Immunology; ATTEND Allergy & Immunology
PROC: HZ2ZZZZ Detoxification Services for Substance Abuse Treatment (ICD-10-PCS; principal; 2021-10-02)
DX: F10.230 Alcohol dependence with withdrawal, uncomplicated (principal); F11.20 Opioid dependence, uncomplicated; F13.20 Sedative, hypnotic or anxiolytic dependence, uncomplicated; F17.210 Nicotine dependence, cigarettes, uncomplicated; F19.280 Other psychoactive substance dependence with psychoactive substance-induced anxiety disorder; F19.282 Other psychoactive substance dependence with psychoactive substance-induced sleep disorder; I10 Essential (primary) hypertension; K21.9 Gastro-esophageal reflux disease without esophagitis; M54.50 Low back pain, unspecified; G89.29 Other chronic pain; N40.0 Benign prostatic hyperplasia without lower urinary tract symptoms; Z86.69 Personal history of other diseases of the nervous system and sense organs; Z91.013 Allergy to seafood
CPT/HCPCS: 36415; 80053; 85027; 86780; C9803; U0003; U0005

== ENCOUNTER 2021-10-07 11:21 | Inpatient (IN) | payer OTHER ==
[2021-10-07] MEDS ORDERED: MAG HYDROX/AL HYDROX/SIMETH 30 ML UNIT-DOSE CUP PO PRN (12:20)
[2021-10-07] MEDS ORDERED: MAGNESIUM CITRATE 300 ML BOTTLE PO PRN (12:20)
[2021-10-07] MEDS ORDERED: NICOTINE 10 MG CARTRIDGE (INHALER) IH PRN (12:20)
[2021-10-07] MEDS ORDERED: P-EPHED 60MG/TRIPROLIDI 2.5MG TABLET PO PRN (12:20)
[2021-10-07] MEDS ORDERED: ACETAMINOPHEN 325 MG TABLET (FP) PO PRN (12:20)
[2021-10-07] MEDS ORDERED: MENTHOL/PHENOL 1 EACH UD MM PRN (12:20)
[2021-10-07] MEDS ORDERED: guaiFENesin 200 MG/10 ML 10 ML UNIT-DOSE CUPS PO PRN (12:20)
[2021-10-07] MEDS ORDERED: LOPERAMIDE HCL 2 MG CAPSULE PO PRN (12:20)
[2021-10-07] MEDS ORDERED: MAGNESIUM HYDROX 2400MG/30ML ORAL SUSPENSION 30 ML CUP PO PRN (12:20)
[2021-10-07] MEDS ORDERED: hydrOXYzine PAMOATE 25 MG CAPSULE (FP) PO SCH (14:00)
[2021-10-07] MEDS ORDERED: METHOCARBAMOL 500 MG TABLET PO SCH (14:00)
[2021-10-07] MEDS: hydrOXYzine PAMOATE 25 MG CAPSULE (FP) PO PRN ×2 (17:54→21:42)
[2021-10-07] MEDS ORDERED: PT OWN MED DRAWER 7, Y5N ONE ×2 (20:25→21:49)
[2021-10-07] MEDS: FLUTICASONE PROP 0.05% 16 GM NASAL SPRAY NS SCH (21:41)
[2021-10-07] MEDS: MELATONIN 5 MG TABLETS PO SCH (21:42)
[2021-10-07] MEDS: THIAMINE HCL 100 MG TABLET (FP) PO SCH (21:42)
[2021-10-08] MEDS: methaDONE HCL 40 MG DISPERSABLE TABLET PO SCH (06:31)
[2021-10-08] MEDS: IBUPROFEN 400 MG TABLET (FP) PO PRN (06:34)
[2021-10-08] MEDS: hydrOXYzine PAMOATE 25 MG CAPSULE (FP) PO PRN (07:29)
[2021-10-08] MEDS ORDERED: PT OWN MED DRAWER 7, Y5N ONE ×2 (08:28→20:12)
[2021-10-08] MEDS: TAMSULOSIN HCL 0.4 MG CAP PO SCH (09:37)
[2021-10-08] MEDS: amLODIPine BESYLATE 5 MG TABLET (FP) PO SCH (09:38)
[2021-10-08] MEDS: FLUTICASONE PROP 0.05% 16 GM NASAL SPRAY NS SCH ×2 (09:38→23:17)
[2021-10-08] MEDS: PRENATAL VITAMINS W/ FOLIC ACID TABLET (FP) PO SCH (09:38)
[2021-10-08] MEDS: NICOTINE 7 MG/24 HOURS TOPICAL PATCH TD SCH (09:39)
[2021-10-08 12:29] LABS: HIV INTERPRETATION NEGATIVE (NEGATIVE)
[2021-10-08] MEDS ORDERED: cloNIDine HCL 0.1 MG TABLET ONE ×2 (16:00→21:32)
[2021-10-08] MEDS: cloNIDine HCL 0.1 MG TABLET PO PRN ×2 (16:01→21:33)
[2021-10-08] MEDS: MELATONIN 5 MG TABLETS PO SCH (21:33)
[2021-10-08] MEDS: THIAMINE HCL 100 MG TABLET (FP) PO SCH (21:33)
[2021-10-09] MEDS: methaDONE HCL 40 MG DISPERSABLE TABLET PO SCH (06:09)
[2021-10-09] MEDS: cloNIDine HCL 0.1 MG TABLET PO PRN ×2 (06:10→21:30)
[2021-10-09] MEDS: FLUTICASONE PROP 0.05% 16 GM NASAL SPRAY NS SCH ×2 (09:38→21:31)
[2021-10-09] MEDS: TAMSULOSIN HCL 0.4 MG CAP PO SCH (09:38)
[2021-10-09] MEDS: amLODIPine BESYLATE 5 MG TABLET (FP) PO SCH (09:39)
[2021-10-09] MEDS: NICOTINE 7 MG/24 HOURS TOPICAL PATCH TD SCH (09:39)
[2021-10-09] MEDS: PRENATAL VITAMINS W/ FOLIC ACID TABLET (FP) PO SCH (09:39)
[2021-10-09] MEDS: IBUPROFEN 400 MG TABLET (FP) PO PRN ×2 (09:39→17:05)
[2021-10-09] MEDS ORDERED: COLLOIDAL OATMEAL 1 BAR EACH TP PRN (15:47)
[2021-10-09] MEDS: THIAMINE HCL 100 MG TABLET (FP) PO SCH (21:30)
[2021-10-09] MEDS: MELATONIN 5 MG TABLETS PO SCH (21:30)
[2021-10-10] MEDS: cloNIDine HCL 0.1 MG TABLET PO PRN ×2 (06:19→21:54)
[2021-10-10] MEDS: methaDONE HCL 40 MG DISPERSABLE TABLET PO SCH (06:19)
[2021-10-10] MEDS: IBUPROFEN 400 MG TABLET (FP) PO PRN ×2 (07:41→13:55)
[2021-10-10] MEDS: hydrOXYzine PAMOATE 25 MG CAPSULE (FP) PO PRN ×2 (07:41→13:55)
[2021-10-10] MEDS ORDERED: PT OWN MED DRAWER 7, Y5N ONE ×2 (08:50→19:11)
[2021-10-10] MEDS: TAMSULOSIN HCL 0.4 MG CAP PO SCH (09:37)
[2021-10-10] MEDS: NICOTINE 7 MG/24 HOURS TOPICAL PATCH TD SCH (09:38)
[2021-10-10] MEDS: amLODIPine BESYLATE 5 MG TABLET (FP) PO SCH (09:38)
[2021-10-10] MEDS: PRENATAL VITAMINS W/ FOLIC ACID TABLET (FP) PO SCH (09:38)
[2021-10-10] MEDS: FLUTICASONE PROP 0.05% 16 GM NASAL SPRAY NS SCH ×2 (09:38→21:55)
[2021-10-10] MEDS: THIAMINE HCL 100 MG TABLET (FP) PO SCH (21:54)
[2021-10-10] MEDS: MELATONIN 5 MG TABLETS PO SCH (21:54)
[2021-10-11] MEDS: methaDONE HCL 40 MG DISPERSABLE TABLET PO SCH (06:28)
[2021-10-11] MEDS: IBUPROFEN 400 MG TABLET (FP) PO PRN ×2 (06:28→13:37)
[2021-10-11] MEDS: cloNIDine HCL 0.1 MG TABLET PO PRN ×2 (06:28→21:17)
[2021-10-11] MEDS: TAMSULOSIN HCL 0.4 MG CAP PO SCH (09:36)
[2021-10-11] MEDS: hydrOXYzine PAMOATE 25 MG CAPSULE (FP) PO PRN ×3 (09:36→23:28)
[2021-10-11] MEDS: PRENATAL VITAMINS W/ FOLIC ACID TABLET (FP) PO SCH (09:36)
[2021-10-11] MEDS: amLODIPine BESYLATE 5 MG TABLET (FP) PO SCH (09:37)
[2021-10-11] MEDS: FLUTICASONE PROP 0.05% 16 GM NASAL SPRAY NS SCH ×2 (09:37→21:17)
[2021-10-11] MEDS: NICOTINE 7 MG/24 HOURS TOPICAL PATCH TD SCH (09:37)
[2021-10-11] MEDS ORDERED: PT OWN MED DRAWER 7, Y5N ONE (13:17)
[2021-10-11] MEDS: MELATONIN 5 MG TABLETS PO SCH (21:16)
[2021-10-11] MEDS: THIAMINE HCL 100 MG TABLET (FP) PO SCH (21:17)
[2021-10-12] MEDS: cloNIDine HCL 0.1 MG TABLET PO PRN ×2 (06:24→21:13)
[2021-10-12] MEDS: methaDONE HCL 40 MG DISPERSABLE TABLET PO SCH (06:24)
[2021-10-12] MEDS ORDERED: PT OWN MED DRAWER 7, Y5N ONE (08:26)
[2021-10-12] MEDS: TAMSULOSIN HCL 0.4 MG CAP PO SCH (09:01)
[2021-10-12] MEDS: FLUTICASONE PROP 0.05% 16 GM NASAL SPRAY NS SCH ×2 (09:01→21:15)
[2021-10-12] MEDS: PRENATAL VITAMINS W/ FOLIC ACID TABLET (FP) PO SCH (09:02)
[2021-10-12] MEDS: NICOTINE 7 MG/24 HOURS TOPICAL PATCH TD SCH (09:02)
[2021-10-12] MEDS: hydrOXYzine PAMOATE 25 MG CAPSULE (FP) PO PRN ×3 (09:02→21:13)
[2021-10-12] MEDS: amLODIPine BESYLATE 5 MG TABLET (FP) PO SCH (09:02)
[2021-10-12] MEDS: IBUPROFEN 400 MG TABLET (FP) PO PRN ×2 (10:17→16:23)
[2021-10-12] MEDS: DOCUSATE SODIUM 100 MG CAPSULE (FP) PO SCH (21:13)
[2021-10-12] MEDS: MELATONIN 5 MG TABLETS PO SCH (21:13)
[2021-10-12] MEDS: THIAMINE HCL 100 MG TABLET (FP) PO SCH (21:14)
[2021-10-13] MEDS: methaDONE HCL 40 MG DISPERSABLE TABLET PO SCH (06:25)
[2021-10-13] MEDS: hydrOXYzine PAMOATE 25 MG CAPSULE (FP) PO PRN ×2 (06:25→14:27)
[2021-10-13] MEDS: cloNIDine HCL 0.1 MG TABLET PO PRN ×2 (06:25→21:12)
[2021-10-13] MEDS: IBUPROFEN 400 MG TABLET (FP) PO PRN ×2 (07:38→19:07)
[2021-10-13] MEDS ORDERED: PT OWN MED DRAWER 7, Y5N ONE (08:05)
[2021-10-13] MEDS: TAMSULOSIN HCL 0.4 MG CAP PO SCH (09:30)
[2021-10-13] MEDS: amLODIPine BESYLATE 5 MG TABLET (FP) PO SCH (09:31)
[2021-10-13] MEDS: NICOTINE 7 MG/24 HOURS TOPICAL PATCH TD SCH (09:31)
[2021-10-13] MEDS: FLUTICASONE PROP 0.05% 16 GM NASAL SPRAY NS SCH ×2 (09:31→23:53)
[2021-10-13] MEDS: PRENATAL VITAMINS W/ FOLIC ACID TABLET (FP) PO SCH (09:32)
[2021-10-13] MEDS: DOCUSATE SODIUM 100 MG CAPSULE (FP) PO SCH (21:12)
[2021-10-13] MEDS: MELATONIN 5 MG TABLETS PO SCH (21:13)
[2021-10-13] MEDS: THIAMINE HCL 100 MG TABLET (FP) PO SCH (21:13)
[2021-10-14] MEDS: methaDONE HCL 40 MG DISPERSABLE TABLET PO SCH (06:19)
[2021-10-14] MEDS: cloNIDine HCL 0.1 MG TABLET PO PRN ×2 (06:20→21:32)
[2021-10-14] MEDS ORDERED: PT OWN MED DRAWER 7, Y5N ONE ×2 (08:09→21:31)
[2021-10-14] MEDS: TAMSULOSIN HCL 0.4 MG CAP PO SCH (09:33)
[2021-10-14] MEDS: FLUTICASONE PROP 0.05% 16 GM NASAL SPRAY NS SCH ×2 (09:33→21:29)
[2021-10-14] MEDS: NICOTINE 7 MG/24 HOURS TOPICAL PATCH TD SCH (09:34)
[2021-10-14] MEDS: PRENATAL VITAMINS W/ FOLIC ACID TABLET (FP) PO SCH (09:34)
[2021-10-14] MEDS: amLODIPine BESYLATE 5 MG TABLET (FP) PO SCH (09:34)
[2021-10-14] MEDS: IBUPROFEN 400 MG TABLET (FP) PO PRN (13:08)
[2021-10-14] MEDS: LIDOCAINE 5% TOPICAL PATCH TP SCH (15:14)
[2021-10-14] MEDS: hydrOXYzine PAMOATE 25 MG CAPSULE (FP) PO PRN (18:45)
[2021-10-14] MEDS: DOCUSATE SODIUM 100 MG CAPSULE (FP) PO SCH (21:28)
[2021-10-14] MEDS: THIAMINE HCL 100 MG TABLET (FP) PO SCH (21:29)
[2021-10-14] MEDS: LIDOCAINE PATCH REMOVAL MC SCH (21:29)
[2021-10-14] MEDS: MELATONIN 5 MG TABLETS PO SCH (21:29)
[2021-10-15] MEDS: methaDONE HCL 40 MG DISPERSABLE TABLET PO SCH (06:14)
[2021-10-15] MEDS: cloNIDine HCL 0.1 MG TABLET PO PRN ×2 (06:14→21:14)
[2021-10-15] MEDS: TAMSULOSIN HCL 0.4 MG CAP PO SCH (09:49)
[2021-10-15] MEDS: amLODIPine BESYLATE 10 MG TABLET (FP) PO SCH (09:50)
[2021-10-15] MEDS: LIDOCAINE 5% TOPICAL PATCH TP SCH (09:50)
[2021-10-15] MEDS: PRENATAL VITAMINS W/ FOLIC ACID TABLET (FP) PO SCH (09:50)
[2021-10-15] MEDS: FLUTICASONE PROP 0.05% 16 GM NASAL SPRAY NS SCH ×2 (09:51→21:16)
[2021-10-15] MEDS: NICOTINE 7 MG/24 HOURS TOPICAL PATCH TD SCH (09:59)
[2021-10-15] MEDS: IBUPROFEN 400 MG TABLET (FP) PO PRN ×2 (12:01→18:41)
[2021-10-15] MEDS: hydrOXYzine PAMOATE 25 MG CAPSULE (FP) PO PRN (18:41)
[2021-10-15] MEDS: DOCUSATE SODIUM 100 MG CAPSULE (FP) PO SCH (21:14)
[2021-10-15] MEDS: MELATONIN 5 MG TABLETS PO SCH (21:14)
[2021-10-15] MEDS: THIAMINE HCL 100 MG TABLET (FP) PO SCH (21:14)
[2021-10-15] MEDS: LIDOCAINE PATCH REMOVAL MC SCH (21:15)
[2021-10-16] MEDS: METHOCARBAMOL 500 MG TABLET PO PRN (01:34)
[2021-10-16] MEDS: methaDONE HCL 40 MG DISPERSABLE TABLET PO SCH (06:27)
[2021-10-16] MEDS: cloNIDine HCL 0.1 MG TABLET PO PRN ×2 (06:28→21:22)
[2021-10-16] MEDS ORDERED: PT OWN MED DRAWER 7, Y5N ONE (08:57)
[2021-10-16] MEDS: PRENATAL VITAMINS W/ FOLIC ACID TABLET (FP) PO SCH (09:35)
[2021-10-16] MEDS: amLODIPine BESYLATE 10 MG TABLET (FP) PO SCH (09:35)
[2021-10-16] MEDS: LIDOCAINE 5% TOPICAL PATCH TP SCH (09:36)
[2021-10-16] MEDS: FLUTICASONE PROP 0.05% 16 GM NASAL SPRAY NS SCH ×2 (09:36→21:20)
[2021-10-16] MEDS: TAMSULOSIN HCL 0.4 MG CAP PO SCH (09:36)
[2021-10-16] MEDS: NICOTINE 7 MG/24 HOURS TOPICAL PATCH TD SCH (09:37)
[2021-10-16] MEDS: IBUPROFEN 400 MG TABLET (FP) PO PRN ×2 (12:03→19:57)
[2021-10-16] MEDS: THIAMINE HCL 100 MG TABLET (FP) PO SCH (21:20)
[2021-10-16] MEDS: LIDOCAINE PATCH REMOVAL MC SCH (21:20)
[2021-10-16] MEDS: DOCUSATE SODIUM 100 MG CAPSULE (FP) PO SCH (21:21)
[2021-10-16] MEDS: MELATONIN 5 MG TABLETS PO SCH (21:21)
[2021-10-16] MEDS ORDERED: SUVOREXANT 10 MG TABLET PO PRN (22:00)
[2021-10-17] MEDS: hydrOXYzine PAMOATE 25 MG CAPSULE (FP) PO PRN (01:55)
[2021-10-17] MEDS: methaDONE HCL 40 MG DISPERSABLE TABLET PO SCH (06:25)
[2021-10-17] MEDS: cloNIDine HCL 0.1 MG TABLET PO PRN ×2 (06:27→21:28)
[2021-10-17] MEDS: TAMSULOSIN HCL 0.4 MG CAP PO SCH (09:19)
[2021-10-17] MEDS: FLUTICASONE PROP 0.05% 16 GM NASAL SPRAY NS SCH ×2 (09:19→21:29)
[2021-10-17] MEDS: LIDOCAINE 5% TOPICAL PATCH TP SCH (09:20)
[2021-10-17] MEDS: PRENATAL VITAMINS W/ FOLIC ACID TABLET (FP) PO SCH (09:20)
[2021-10-17] MEDS: NICOTINE 7 MG/24 HOURS TOPICAL PATCH TD SCH (09:20)
[2021-10-17] MEDS: amLODIPine BESYLATE 10 MG TABLET (FP) PO SCH (09:20)
[2021-10-17] MEDS: IBUPROFEN 400 MG TABLET (FP) PO PRN (12:08)
[2021-10-17] MEDS: METHOCARBAMOL 500 MG TABLET PO PRN (18:23)
[2021-10-17] MEDS: SUVOREXANT 15 MG TABLET PO PRN (21:27)
[2021-10-17] MEDS: DOCUSATE SODIUM 100 MG CAPSULE (FP) PO SCH (21:28)
[2021-10-17] MEDS: THIAMINE HCL 100 MG TABLET (FP) PO SCH (21:28)
[2021-10-17] MEDS: MELATONIN 5 MG TABLETS PO SCH (23:59)
[2021-10-17] MEDS: LIDOCAINE PATCH REMOVAL MC SCH (23:59)
[2021-10-18] MEDS: METHOCARBAMOL 500 MG TABLET PO PRN ×2 (03:38→18:15)
[2021-10-18] MEDS: methaDONE HCL 40 MG DISPERSABLE TABLET PO SCH (06:11)
[2021-10-18] MEDS: cloNIDine HCL 0.1 MG TABLET PO PRN ×2 (06:13→21:15)
[2021-10-18] MEDS: NICOTINE 7 MG/24 HOURS TOPICAL PATCH TD SCH (09:01)
[2021-10-18] MEDS: FLUTICASONE PROP 0.05% 16 GM NASAL SPRAY NS SCH ×2 (09:01→21:18)
[2021-10-18] MEDS: LIDOCAINE 5% TOPICAL PATCH TP SCH (09:01)
[2021-10-18] MEDS: TAMSULOSIN HCL 0.4 MG CAP PO SCH (09:01)
[2021-10-18] MEDS: IBUPROFEN 400 MG TABLET (FP) PO PRN ×2 (09:02→15:11)
[2021-10-18] MEDS: amLODIPine BESYLATE 10 MG TABLET (FP) PO SCH (09:02)
[2021-10-18] MEDS: PRENATAL VITAMINS W/ FOLIC ACID TABLET (FP) PO SCH (09:02)
[2021-10-18 20:59] VITALS: PULSE 70
[2021-10-18] MEDS: THIAMINE HCL 100 MG TABLET (FP) PO SCH (21:15)
[2021-10-18] MEDS: SUVOREXANT 15 MG TABLET PO PRN (21:15)
[2021-10-18] MEDS: LIDOCAINE PATCH REMOVAL MC SCH (21:16)
[2021-10-18] MEDS: DOCUSATE SODIUM 100 MG CAPSULE (FP) PO SCH (21:19)
[2021-10-18] MEDS: MELATONIN 5 MG TABLETS PO SCH (21:19)
[2021-10-19] MEDS: methaDONE HCL 40 MG DISPERSABLE TABLET PO SCH (06:09)
[2021-10-19] MEDS: cloNIDine HCL 0.1 MG TABLET PO PRN (06:10)
[2021-10-19 06:43] VITALS: BP 142/89; TEMP 97.3
[2021-10-19] MEDS ORDERED: PT OWN MED DRAWER 7, Y5N ONE (08:30)
[2021-10-19] MEDS: LIDOCAINE 5% TOPICAL PATCH TP SCH (09:02)
[2021-10-19] MEDS: FLUTICASONE PROP 0.05% 16 GM NASAL SPRAY NS SCH (09:03)
[2021-10-19] MEDS: TAMSULOSIN HCL 0.4 MG CAP PO SCH (09:03)
[2021-10-19] MEDS: PRENATAL VITAMINS W/ FOLIC ACID TABLET (FP) PO SCH (09:03)
[2021-10-19] MEDS: amLODIPine BESYLATE 10 MG TABLET (FP) PO SCH (09:03)
[2021-10-19] MEDS: NICOTINE 7 MG/24 HOURS TOPICAL PATCH TD SCH (09:03)
== END 2021-10-19 09:11 | disposition home or self-care (01) | DRG 772 ==
LOC: YASAS 11:21 → Y3E 11:22
PROVIDERS: ADMIT Allergy & Immunology; ATTEND Allergy & Immunology
PROC: HZ42ZZZ Group Counseling for Substance Abuse Treatment, Cognitive-Behavioral (ICD-10-PCS; principal; 2021-10-07)
DX: F10.20 Alcohol dependence, uncomplicated (principal); F11.20 Opioid dependence, uncomplicated; F13.20 Sedative, hypnotic or anxiolytic dependence, uncomplicated; F17.200 Nicotine dependence, unspecified, uncomplicated; I10 Essential (primary) hypertension; G47.00 Insomnia, unspecified; M17.11 Unilateral primary osteoarthritis, right knee; N40.0 Benign prostatic hyperplasia without lower urinary tract symptoms; K21.9 Gastro-esophageal reflux disease without esophagitis; Z91.013 Allergy to seafood; Z87.438 Personal history of other diseases of male genital organs; Z86.69 Personal history of other diseases of the nervous system and sense organs; Z56.0 Unemployment, unspecified
CPT/HCPCS: 36415; 87389; J0735

== ENCOUNTER 2021-12-20 15:56 | Inpatient (IN) | payer OTHER ==
[2021-12-20] MEDS ORDERED: BISMUTH SUBSALICYLATE 524 MG/30 ML PO PRN (18:32)
[2021-12-20] MEDS ORDERED: ONDANSETRON *ODT* 4 MG TABLET SL PRN (18:32)
[2021-12-20] MEDS ORDERED: ACETAMINOPHEN 325 MG TABLET (FP) PO PRN ×2 (18:32)
[2021-12-20] MEDS ORDERED: MAGNESIUM CITRATE 300 ML BOTTLE PO PRN (18:32)
[2021-12-20] MEDS ORDERED: MAGNESIUM HYDROX 2400MG/30ML ORAL SUSPENSION 30 ML CUP PO PRN (18:32)
[2021-12-20] MEDS ORDERED: MENTHOL/PHENOL 1 EACH UD MM PRN (18:32)
[2021-12-20] MEDS ORDERED: MAG HYDROX/AL HYDROX/SIMETH 30 ML UNIT-DOSE CUP PO PRN (18:32)
[2021-12-20] MEDS ORDERED: diazePAM 5 MG TABLET PO ONE (18:32)
[2021-12-20 18:56] VITALS: BMI 20.8
[2021-12-20] MEDS ORDERED: AMMONIUM LACTATE 12% LOTION 225 GM BOTTLE TP PRN (20:23)
[2021-12-20] MEDS: diazePAM 5 MG TABLET PO PRN (20:52)
[2021-12-20] MEDS: IBUPROFEN 400 MG TABLET (FP) PO PRN (20:57)
[2021-12-20] MEDS: MELATONIN 5 MG TABLETS PO PRN (20:58)
[2021-12-20] MEDS: diazePAM 5 MG TABLET PO SCH (22:00)
[2021-12-20] MEDS: DOCUSATE SODIUM 100 MG CAPSULE (FP) PO SCH (23:22)
[2021-12-20] MEDS: THIAMINE HCL 100 MG TABLET (FP) PO SCH (23:23)
[2021-12-21] MEDS: diazePAM 5 MG TABLET PO SCH ×4 (05:31→22:43)
[2021-12-21] MEDS: DOCUSATE SODIUM 100 MG CAPSULE (FP) PO SCH ×3 (06:07→22:43)
[2021-12-21] MEDS: methaDONE HCL 40 MG DISPERSABLE TABLET PO SCH (10:23)
[2021-12-21] MEDS: PRENATAL VITAMINS W/ FOLIC ACID TABLET (FP) PO SCH (10:23)
[2021-12-21] MEDS: METHOCARBAMOL 500 MG TABLET PO PRN (10:24)
[2021-12-21] MEDS: hydrOXYzine PAMOATE 25 MG CAPSULE (FP) PO PRN ×2 (10:24→22:43)
[2021-12-21] MEDS: amLODIPine BESYLATE 10 MG TABLET (FP) PO SCH (10:24)
[2021-12-21 10:25] LABS: HEMATOCRIT 38.9 % (35.4-49); HEMOGLOBIN 12.3 GM/dL (11.7-16.9); MCH 31.8 pg (25.7-33.7); MCHC 31.6 g/dl (32.0-35.9); MEAN CELL VOLUME 100.5 fl (80-96); MEAN PLT VOLUME 8.5 fl (7.5-11.1); PLATELET COUNT 324 10^3/uL (134-434); RBC 3.87 M/mm3 (4.00-5.60); RDW 13.5 % (11.9-15.9); WHITE BLOOD COUNT 4.9 K/mm3 (4.0-10.0)
[2021-12-21] MEDS: IBUPROFEN 400 MG TABLET (FP) PO PRN ×2 (10:26→18:39)
[2021-12-21 10:55] LABS: ALBUMIN 3.8 g/dl (3.4-5.0); CALCIUM 9.5 mg/dL (8.5-10.1)
[2021-12-21 10:56] LABS: BLOOD UREA NITROGEN 18.5 mg/dL (7-18)
[2021-12-21 10:58] LABS: CREATININE 1.3 mg/dL (0.55-1.3)
[2021-12-21 11:00] LABS: BILIRUBIN,TOTAL 0.5 mg/dL (0.2-1); TOT PROT 7.1 g/dl (6.4-8.2)
[2021-12-21 12:35] LABS: URINE APPEARANCE CLEAR; URINE BILIRUBIN NEGATIVE (NEGATIVE); URINE COLOR YELLOW; URINE GLUCOSE (UA) NEGATIVE (NEGATIVE); URINE KETONE TRACE (NEGATIVE); URINE LEUK ESTERASE NEGATIVE (NEGATIVE); URINE NITRITE NEGATIVE (NEGATIVE); URINE PROTEIN TRACE (NEGATIVE)
[2021-12-21] MEDS: cloNIDine HCL 0.1 MG TABLET PO PRN (21:20)
[2021-12-21] MEDS: THIAMINE HCL 100 MG TABLET (FP) PO SCH (22:43)
[2021-12-21] MEDS: MELATONIN 5 MG TABLETS PO PRN (22:43)
[2021-12-22] MEDS: diazePAM 5 MG TABLET PO SCH ×3 (05:50→22:21)
[2021-12-22] MEDS: methaDONE HCL 40 MG DISPERSABLE TABLET PO SCH (05:51)
[2021-12-22] MEDS: DOCUSATE SODIUM 100 MG CAPSULE (FP) PO SCH ×3 (05:51→22:21)
[2021-12-22] MEDS: amLODIPine BESYLATE 10 MG TABLET (FP) PO SCH (10:20)
[2021-12-22] MEDS: PRENATAL VITAMINS W/ FOLIC ACID TABLET (FP) PO SCH (10:20)
[2021-12-22] MEDS: diazePAM 5 MG TABLET PO PRN ×2 (10:22→17:44)
[2021-12-22] MEDS: IBUPROFEN 400 MG TABLET (FP) PO PRN (14:35)
[2021-12-22] MEDS: METHOCARBAMOL 500 MG TABLET PO PRN (17:44)
[2021-12-22] MEDS: THIAMINE HCL 100 MG TABLET (FP) PO SCH (22:21)
[2021-12-22] MEDS: hydrOXYzine PAMOATE 25 MG CAPSULE (FP) PO PRN (22:21)
[2021-12-22] MEDS: cloNIDine HCL 0.1 MG TABLET PO PRN (22:23)
[2021-12-23] MEDS: DOCUSATE SODIUM 100 MG CAPSULE (FP) PO SCH ×3 (06:12→22:37)
[2021-12-23] MEDS: diazePAM 5 MG TABLET PO SCH ×2 (06:13→18:22)
[2021-12-23] MEDS: methaDONE HCL 40 MG DISPERSABLE TABLET PO SCH (06:13)
[2021-12-23] MEDS: PRENATAL VITAMINS W/ FOLIC ACID TABLET (FP) PO SCH (10:43)
[2021-12-23] MEDS: amLODIPine BESYLATE 10 MG TABLET (FP) PO SCH (10:44)
[2021-12-23] MEDS: METHOCARBAMOL 500 MG TABLET PO PRN ×2 (10:45→22:37)
[2021-12-23] MEDS: cloNIDine HCL 0.1 MG TABLET PO PRN (13:31)
[2021-12-23] MEDS: hydrOXYzine PAMOATE 25 MG CAPSULE (FP) PO PRN (17:43)
[2021-12-23] MEDS: diazePAM 5 MG TABLET PO PRN (17:43)
[2021-12-23] MEDS: MELATONIN 5 MG TABLETS PO PRN (22:37)
[2021-12-23] MEDS: THIAMINE HCL 100 MG TABLET (FP) PO SCH (22:37)
[2021-12-24] MEDS ORDERED: diazePAM 5 MG TABLET PO ONE (06:00)
[2021-12-24] MEDS: DOCUSATE SODIUM 100 MG CAPSULE (FP) PO SCH (06:08)
[2021-12-24] MEDS: methaDONE HCL 40 MG DISPERSABLE TABLET PO SCH (06:08)
[2021-12-24] MEDS: METHOCARBAMOL 500 MG TABLET PO PRN (06:08)
[2021-12-24 09:18] VITALS: BP 134/84; PULSE 65; TEMP 98.2
[2021-12-24] MEDS: PRENATAL VITAMINS W/ FOLIC ACID TABLET (FP) PO SCH (10:11)
[2021-12-24] MEDS: amLODIPine BESYLATE 10 MG TABLET (FP) PO SCH (10:12)
[2021-12-24] MEDS: IBUPROFEN 400 MG TABLET (FP) PO PRN (10:14)
== END 2021-12-24 10:52 | disposition home or self-care (01) | DRG 773 ==
LOC: YASAS 15:56 → Y6N 19:13
PROVIDERS: ADMIT Allergy & Immunology; ATTEND Allergy & Immunology
PROC: HZ2ZZZZ Detoxification Services for Substance Abuse Treatment (ICD-10-PCS; principal; 2021-12-20)
DX: F10.230 Alcohol dependence with withdrawal, uncomplicated (principal); F13.230 Sedative, hypnotic or anxiolytic dependence with withdrawal, uncomplicated; F11.20 Opioid dependence, uncomplicated; F17.213 Nicotine dependence, cigarettes, with withdrawal; F42.4 Excoriation (skin-picking) disorder; F32.A Depression, unspecified; I10 Essential (primary) hypertension; K21.9 Gastro-esophageal reflux disease without esophagitis; K59.03 Drug induced constipation; M54.50 Low back pain, unspecified; N40.0 Benign prostatic hyperplasia without lower urinary tract symptoms; G89.29 Other chronic pain; R63.4 Abnormal weight loss; Z68.20 Body mass index [BMI] 20.0-20.9, adult; Z91.013 Allergy to seafood
CPT/HCPCS: 36415; 80053; 81003; 85027; 86780; C9803; J0735; U0003; U0005

== ENCOUNTER 2022-03-19 16:36 | Inpatient (IN) | payer BC ==
[2022-03-19 18:48] VITALS: BMI 21.6
[2022-03-19] MEDS ORDERED: BISMUTH SUBSALICYLATE 524 MG/30 ML PO PRN (23:18)
[2022-03-19] MEDS ORDERED: NICOTINE POLACRILEX 2 MG GUM BUC PRN (23:18)
[2022-03-19] MEDS ORDERED: ONDANSETRON *ODT* 4 MG TABLET SL PRN (23:18)
[2022-03-19] MEDS ORDERED: ACETAMINOPHEN 325 MG TABLET (FP) PO PRN ×2 (23:18)
[2022-03-19] MEDS ORDERED: DICYCLOMINE HCL 10 MG CAPSULE PO PRN (23:18)
[2022-03-19] MEDS ORDERED: BENZOCAINE/MENTHOL (CHLORASEPTIC ) LOZENGE MM PRN (23:18)
[2022-03-19] MEDS ORDERED: MAG HYDROX/AL HYDROX/SIMETH 30 ML UNIT-DOSE CUP PO PRN (23:18)
[2022-03-19] MEDS ORDERED: MAGNESIUM HYDROX 2400MG/30ML ORAL SUSPENSION 30 ML CUP PO PRN (23:18)
[2022-03-19] MEDS ORDERED: MAGNESIUM CITRATE 300 ML BOTTLE PO PRN (23:18)
[2022-03-19] MEDS ORDERED: LOPERAMIDE HCL 2 MG CAPSULE PO PRN (23:18)
[2022-03-20] MEDS: hydrOXYzine PAMOATE 25 MG CAPSULE (FP) PO PRN ×3 (00:28→18:00)
[2022-03-20] MEDS: MELATONIN 5 MG TABLETS PO PRN ×2 (00:28→22:27)
[2022-03-20] MEDS: diazePAM 5 MG TABLET PO PRN ×2 (00:28→13:02)
[2022-03-20] MEDS: IBUPROFEN 400 MG TABLET (FP) PO PRN ×2 (00:30→18:02)
[2022-03-20] MEDS: diazePAM 5 MG TABLET PO SCH ×5 (00:33→22:28)
[2022-03-20] MEDS: PRENATAL VITAMINS W/ FOLIC ACID TABLET (FP) PO SCH (10:45)
[2022-03-20] MEDS: amLODIPine BESYLATE 10 MG TABLET (FP) PO SCH (10:45)
[2022-03-20] MEDS: methaDONE HCL 40 MG DISPERSABLE TABLET PO SCH (11:07)
[2022-03-20 12:32] LABS: HEMATOCRIT 38.6 % (35.4-49); MCH 32.8 pg (25.7-33.7); MCHC 33.7 g/dl (32.0-35.9); MEAN CELL VOLUME 97.2 fl (80-96); MEAN PLT VOLUME 8.5 fl (7.5-11.1); PLATELET COUNT 310 10^3/uL (134-434); RBC 3.97 M/mm3 (4.00-5.60); RDW 13.1 % (11.9-15.9); WHITE BLOOD COUNT 5.9 K/mm3 (4.0-10.0)
[2022-03-20 12:42] LABS: ALBUMIN 3.8 g/dl (3.4-5.0); CALCIUM 9.4 mg/dL (8.5-10.1)
[2022-03-20 12:43] LABS: BLOOD UREA NITROGEN 20.1 mg/dL (7-18)
[2022-03-20 12:47] LABS: BILIRUBIN,TOTAL 0.6 mg/dL (0.2-1); TOT PROT 7.5 g/dl (6.4-8.2)
[2022-03-20 13:27] LABS: HIV INTERPRETATION NEGATIVE (NEGATIVE)
[2022-03-20] MEDS ORDERED: SUVOREXANT 10 MG TABLET PO PRN (22:00)
[2022-03-20] MEDS: THIAMINE HCL 100 MG TABLET (FP) PO SCH (22:27)
[2022-03-21] MEDS: diazePAM 5 MG TABLET PO SCH ×3 (05:41→22:36)
[2022-03-21] MEDS: methaDONE HCL 40 MG DISPERSABLE TABLET PO SCH (05:42)
[2022-03-21] MEDS: hydrOXYzine PAMOATE 25 MG CAPSULE (FP) PO PRN ×2 (05:43→22:34)
[2022-03-21] MEDS: diazePAM 5 MG TABLET PO PRN ×2 (10:06→17:58)
[2022-03-21] MEDS: PRENATAL VITAMINS W/ FOLIC ACID TABLET (FP) PO SCH (10:06)
[2022-03-21] MEDS: IBUPROFEN 400 MG TABLET (FP) PO PRN (10:06)
[2022-03-21] MEDS: amLODIPine BESYLATE 10 MG TABLET (FP) PO SCH (10:06)
[2022-03-21] MEDS: METHOCARBAMOL 500 MG TABLET PO PRN (22:34)
[2022-03-21] MEDS: MELATONIN 5 MG TABLETS PO PRN (22:35)
[2022-03-21] MEDS: THIAMINE HCL 100 MG TABLET (FP) PO SCH (22:35)
[2022-03-22] MEDS: diazePAM 5 MG TABLET PO SCH ×2 (05:34→17:49)
[2022-03-22] MEDS: METHOCARBAMOL 500 MG TABLET PO PRN (05:38)
[2022-03-22] MEDS: IBUPROFEN 400 MG TABLET (FP) PO PRN ×2 (05:38→17:50)
[2022-03-22] MEDS: amLODIPine BESYLATE 10 MG TABLET (FP) PO SCH (09:36)
[2022-03-22] MEDS: PRENATAL VITAMINS W/ FOLIC ACID TABLET (FP) PO SCH (09:36)
[2022-03-22] MEDS: diazePAM 5 MG TABLET PO PRN (09:37)
[2022-03-22] MEDS: methaDONE HCL 40 MG DISPERSABLE TABLET PO SCH (11:24)
[2022-03-22 16:08] LABS: SARS-CoV-2 NAA Not Detected (Not Detected)
[2022-03-22] MEDS: hydrOXYzine PAMOATE 25 MG CAPSULE (FP) PO PRN (17:49)
[2022-03-22] MEDS: THIAMINE HCL 100 MG TABLET (FP) PO SCH (22:24)
[2022-03-22] MEDS: MELATONIN 5 MG TABLETS PO PRN (22:24)
[2022-03-23] MEDS: methaDONE HCL 40 MG DISPERSABLE TABLET PO SCH (05:50)
[2022-03-23] MEDS ORDERED: diazePAM 5 MG TABLET PO ONE (06:00)
[2022-03-23 08:56] VITALS: BP 137/83; PULSE 69; TEMP 98.4
== END 2022-03-23 09:21 | disposition home or self-care (01) | DRG 773 ==
LOC: YASAS 16:36 → Y3N 21:12
PROVIDERS: ADMIT Allergy & Immunology; ATTEND Allergy & Immunology
PROC: HZ2ZZZZ Detoxification Services for Substance Abuse Treatment (ICD-10-PCS; principal; 2022-03-19)
DX: F10.230 Alcohol dependence with withdrawal, uncomplicated (principal); F13.230 Sedative, hypnotic or anxiolytic dependence with withdrawal, uncomplicated; F11.20 Opioid dependence, uncomplicated; F17.210 Nicotine dependence, cigarettes, uncomplicated; F19.280 Other psychoactive substance dependence with psychoactive substance-induced anxiety disorder; F19.24 Other psychoactive substance dependence with psychoactive substance-induced mood disorder; I10 Essential (primary) hypertension; K21.9 Gastro-esophageal reflux disease without esophagitis; M17.11 Unilateral primary osteoarthritis, right knee; M54.50 Low back pain, unspecified; G89.29 Other chronic pain; N40.0 Benign prostatic hyperplasia without lower urinary tract symptoms; R63.4 Abnormal weight loss; Z68.21 Body mass index [BMI] 21.0-21.9, adult; Z86.69 Personal history of other diseases of the nervous system and sense organs; Z86.19 Personal history of other infectious and parasitic diseases; Z56.0 Unemployment, unspecified
CPT/HCPCS: 36415; 80053; 85027; 86780; 87389; 87811; C9803-CS; U0003; U0005

== ENCOUNTER 2022-05-04 12:04 | Inpatient (IN) | payer BC ==
[2022-05-04 12:32] VITALS: BMI 21.6
[2022-05-04] MEDS ORDERED: BENZOCAINE/MENTHOL (CHLORASEPTIC ) LOZENGE MM PRN (12:46)
[2022-05-04] MEDS ORDERED: MAG HYDROX/AL HYDROX/SIMETH 30 ML UNIT-DOSE CUP PO PRN (12:46)
[2022-05-04] MEDS ORDERED: NICOTINE 10 MG CARTRIDGE (INHALER) IH PRN (12:46)
[2022-05-04] MEDS ORDERED: ONDANSETRON *ODT* 4 MG TABLET SL PRN (12:46)
[2022-05-04] MEDS ORDERED: DICYCLOMINE HCL 10 MG CAPSULE PO PRN (12:46)
[2022-05-04] MEDS ORDERED: ACETAMINOPHEN 325 MG TABLET (FP) PO PRN ×2 (12:46)
[2022-05-04] MEDS ORDERED: MAGNESIUM HYDROX 2400MG/30ML ORAL SUSPENSION 30 ML CUP PO PRN (12:46)
[2022-05-04] MEDS ORDERED: BISMUTH SUBSALICYLATE 524 MG/30 ML PO PRN (12:46)
[2022-05-04] MEDS ORDERED: NICOTINE POLACRILEX 4 MG GUM BUC PRN (12:46)
[2022-05-04] MEDS ORDERED: LOPERAMIDE HCL 2 MG CAPSULE PO PRN (12:46)
[2022-05-04] MEDS ORDERED: MAGNESIUM CITRATE 300 ML BOTTLE PO PRN (12:46)
[2022-05-04] MEDS ORDERED: IBUPROFEN 400 MG TABLET (FP) PO PRN (12:46)
[2022-05-04] MEDS ORDERED: NALOXONE HCL (KLOXXADO) 8 MG SPRAY NS PRN (13:00)
[2022-05-04] MEDS: diazePAM 5 MG TABLET PO PRN (15:15)
[2022-05-04] MEDS: PRENATAL VITAMINS W/ FOLIC ACID TABLET (FP) PO SCH (15:15)
[2022-05-04] MEDS: hydrOXYzine PAMOATE 25 MG CAPSULE (FP) PO SCH ×3 (15:15→22:10)
[2022-05-04] MEDS: METHOCARBAMOL 500 MG TABLET PO PRN (15:15)
[2022-05-04 17:17] LABS: HEMATOCRIT 38.1 % (35.4-49); HEMOGLOBIN 12.5 GM/dL (11.7-16.9); MCH 32.2 pg (25.7-33.7); MCHC 32.8 g/dl (32.0-35.9); MEAN CELL VOLUME 98.2 fl (80-96); MEAN PLT VOLUME 8.2 fl (7.5-11.1); PLATELET COUNT 277 10^3/uL (134-434); RBC 3.87 M/mm3 (4.00-5.60); RDW 13.2 % (11.9-15.9); WHITE BLOOD COUNT 6.1 K/mm3 (4.0-10.0)
[2022-05-04 17:22] LABS: BLOOD UREA NITROGEN 20.5 mg/dL (7-18); CALCIUM 9.2 mg/dL (8.5-10.1)
[2022-05-04 17:25] LABS: BILIRUBIN,TOTAL 0.8 mg/dL (0.2-1)
[2022-05-04 17:26] LABS: TOT PROT 7.9 g/dl (6.4-8.2)
[2022-05-04] MEDS: diazePAM 5 MG TABLET PO SCH ×2 (18:07→22:10)
[2022-05-04] MEDS: THIAMINE HCL 100 MG TABLET (FP) PO SCH (22:10)
[2022-05-04] MEDS: MELATONIN 5 MG TABLETS PO SCH (22:11)
[2022-05-05] MEDS: diazePAM 5 MG TABLET PO SCH ×4 (05:34→22:00)
[2022-05-05] MEDS: hydrOXYzine PAMOATE 25 MG CAPSULE (FP) PO SCH ×5 (05:34→21:54)
[2022-05-05] MEDS: IBUPROFEN 600 MG TABLET (FP) PO PRN (05:35)
[2022-05-05] MEDS ORDERED: methaDONE HCL 40 MG DISPERSABLE TABLET PO ONE (10:00)
[2022-05-05] MEDS: amLODIPine BESYLATE 10 MG TABLET (FP) PO SCH (10:26)
[2022-05-05] MEDS: METHOCARBAMOL 500 MG TABLET PO PRN (10:26)
[2022-05-05] MEDS: PRENATAL VITAMINS W/ FOLIC ACID TABLET (FP) PO SCH (10:26)
[2022-05-05] MEDS: diazePAM 5 MG TABLET PO PRN (13:20)
[2022-05-05] MEDS: THIAMINE HCL 100 MG TABLET (FP) PO SCH (21:54)
[2022-05-05] MEDS: MELATONIN 5 MG TABLETS PO SCH (21:54)
[2022-05-06] MEDS: diazePAM 5 MG TABLET PO SCH ×3 (05:43→22:30)
[2022-05-06] MEDS: methaDONE HCL 40 MG DISPERSABLE TABLET PO SCH (05:43)
[2022-05-06] MEDS: hydrOXYzine PAMOATE 25 MG CAPSULE (FP) PO SCH ×5 (05:44→22:30)
[2022-05-06] MEDS: PRENATAL VITAMINS W/ FOLIC ACID TABLET (FP) PO SCH (10:08)
[2022-05-06] MEDS: METHOCARBAMOL 500 MG TABLET PO PRN (10:08)
[2022-05-06] MEDS: diazePAM 5 MG TABLET PO PRN ×2 (10:09→17:34)
[2022-05-06] MEDS: amLODIPine BESYLATE 10 MG TABLET (FP) PO SCH (10:09)
[2022-05-06] MEDS: THIAMINE HCL 100 MG TABLET (FP) PO SCH (22:31)
[2022-05-06] MEDS: MELATONIN 5 MG TABLETS PO SCH (22:31)
[2022-05-07] MEDS: IBUPROFEN 600 MG TABLET (FP) PO PRN (05:34)
[2022-05-07] MEDS: diazePAM 5 MG TABLET PO SCH ×2 (05:34→18:33)
[2022-05-07] MEDS: hydrOXYzine PAMOATE 25 MG CAPSULE (FP) PO SCH ×5 (05:34→22:39)
[2022-05-07] MEDS: methaDONE HCL 40 MG DISPERSABLE TABLET PO SCH (05:34)
[2022-05-07] MEDS: amLODIPine BESYLATE 10 MG TABLET (FP) PO SCH (10:17)
[2022-05-07] MEDS: PRENATAL VITAMINS W/ FOLIC ACID TABLET (FP) PO SCH (10:17)
[2022-05-07] MEDS: MELATONIN 5 MG TABLETS PO SCH (22:38)
[2022-05-07] MEDS: THIAMINE HCL 100 MG TABLET (FP) PO SCH (22:38)
[2022-05-08] MEDS: methaDONE HCL 40 MG DISPERSABLE TABLET PO SCH (05:29)
[2022-05-08] MEDS: hydrOXYzine PAMOATE 25 MG CAPSULE (FP) PO SCH ×2 (05:29→09:11)
[2022-05-08] MEDS ORDERED: diazePAM 5 MG TABLET PO ONE (06:00)
[2022-05-08] MEDS: PRENATAL VITAMINS W/ FOLIC ACID TABLET (FP) PO SCH (09:10)
[2022-05-08] MEDS: amLODIPine BESYLATE 10 MG TABLET (FP) PO SCH (09:10)
[2022-05-08 09:29] VITALS: BP 153/83; PULSE 76; TEMP 97.7
== END 2022-05-08 10:13 | disposition home or self-care (01) | DRG 773 ==
LOC: YASAS 12:04 → Y6N 14:32
PROVIDERS: ADMIT Allergy & Immunology; ATTEND Surgery
PROC: HZ2ZZZZ Detoxification Services for Substance Abuse Treatment (ICD-10-PCS; principal; 2022-05-04)
DX: F10.230 Alcohol dependence with withdrawal, uncomplicated (principal); F13.230 Sedative, hypnotic or anxiolytic dependence with withdrawal, uncomplicated; F11.20 Opioid dependence, uncomplicated; F12.10 Cannabis abuse, uncomplicated; F17.210 Nicotine dependence, cigarettes, uncomplicated; F19.282 Other psychoactive substance dependence with psychoactive substance-induced sleep disorder; F19.24 Other psychoactive substance dependence with psychoactive substance-induced mood disorder; F32.A Depression, unspecified; M17.11 Unilateral primary osteoarthritis, right knee; N40.0 Benign prostatic hyperplasia without lower urinary tract symptoms; R10.812 Left upper quadrant abdominal tenderness; Z86.2 Personal history of diseases of the blood and blood-forming organs and certain disorders involving the immune mechanism; Z91.013 Allergy to seafood
CPT/HCPCS: 36415; 80053; 85027; 86780; C9803-CS; U0003; U0005

== ENCOUNTER 2023-03-03 12:53 | Inpatient (IN) | payer BC ==
[2023-03-03 13:35] VITALS: BMI 21.1
[2023-03-03] MEDS ORDERED: BISMUTH SUBSALICYLATE 524 MG/30 ML PO PRN (14:16)
[2023-03-03] MEDS ORDERED: ACETAMINOPHEN 325 MG TABLET (FP) PO PRN (14:16)
[2023-03-03] MEDS ORDERED: BENZOCAINE/MENTHOL (CHLORASEPTIC ) LOZENGE MM PRN (14:16)
[2023-03-03] MEDS ORDERED: MAG HYDROX/AL HYDROX/SIMETH 30 ML UNIT-DOSE CUP PO PRN (14:16)
[2023-03-03] MEDS ORDERED: MAGNESIUM HYDROX 2400MG/30ML ORAL SUSPENSION 30 ML CUP PO PRN (14:16)
[2023-03-03] MEDS ORDERED: NICOTINE POLACRILEX 2 MG GUM BUC PRN (14:16)
[2023-03-03] MEDS ORDERED: POLYETHYLENE GLYCOL (HEALTHYLAX) 3350 17 GM PACKET PO PRN (14:16)
[2023-03-03] MEDS ORDERED: hydrOXYzine PAMOATE 25 MG CAPSULE (FP) PO PRN (14:16)
[2023-03-03] MEDS ORDERED: DICYCLOMINE HCL 10 MG CAPSULE PO PRN (14:16)
[2023-03-03] MEDS ORDERED: NALOXONE HCL 0.4 MG/ML VIAL IM PRN (14:16)
[2023-03-03] MEDS ORDERED: P-EPHED 60MG/TRIPROLIDI 2.5MG TABLET PO PRN (14:16)
[2023-03-03] MEDS ORDERED: ONDANSETRON *ODT* 4 MG TABLET SL PRN (14:16)
[2023-03-03] MEDS ORDERED: NALOXONE HCL (KLOXXADO) 8 MG SPRAY NS PRN (14:16)
[2023-03-03] MEDS ORDERED: LOPERAMIDE HCL 2 MG CAPSULE PO PRN (14:16)
[2023-03-03] MEDS ORDERED: IBUPROFEN 400 MG TABLET (FP) PO PRN (14:16)
[2023-03-03] MEDS ORDERED: BENZONATATE 200 MG CAPSULE PO PRN (14:16)
[2023-03-03] MEDS ORDERED: guaiFENesin 600 MG TABLET.ER (FP) PO PRN (14:16)
[2023-03-03] MEDS: diazePAM 5 MG TABLET PO SCH (22:51)
[2023-03-03] MEDS: MELATONIN 5 MG TABLETS PO PRN (22:51)
[2023-03-03] MEDS: THIAMINE HCL 100 MG TABLET (FP) PO SCH (22:51)
[2023-03-04] MEDS: diazePAM 5 MG TABLET PO SCH ×4 (05:41→22:42)
[2023-03-04] MEDS ORDERED: methaDONE HCL 10 MG TABLET PO SCH (09:15)
[2023-03-04] MEDS ORDERED: methaDONE 80 MG, methaDONE 10 MG PO ONE (09:30)
[2023-03-04] MEDS: PRENATAL VITAMINS W/ FOLIC ACID TABLET (FP) PO SCH (10:17)
[2023-03-04 11:24] LABS: HEMATOCRIT 36.5 % (35.4-49); HEMOGLOBIN 12.1 GM/dL (11.7-16.9); MCH 31.8 pg (25.7-33.7); MCHC 33.1 g/dl (32.0-35.9); MEAN PLT VOLUME 8.2 fl (7.5-11.1); PLATELET COUNT 293 10^3/uL (134-434); RDW 13.7 % (11.9-15.9)
[2023-03-04 11:47] LABS: CALCIUM 9.3 mg/dL (8.5-10.1)
[2023-03-04 11:48] LABS: ALBUMIN 3.4 g/dl (3.4-5.0); BLOOD UREA NITROGEN 14.2 mg/dL (7-18)
[2023-03-04 11:51] LABS: CREATININE 0.9 mg/dL (0.55-1.3)
[2023-03-04 11:53] LABS: BILIRUBIN,TOTAL 0.6 mg/dL (0.2-1)
[2023-03-04] MEDS: diazePAM 5 MG TABLET PO PRN (13:49)
[2023-03-04] MEDS: IBUPROFEN 600 MG TABLET (FP) PO PRN (17:23)
[2023-03-04] MEDS: MELATONIN 5 MG TABLETS PO PRN (22:42)
[2023-03-04] MEDS: THIAMINE HCL 100 MG TABLET (FP) PO SCH (22:42)
[2023-03-05] MEDS: methaDONE 80 MG, methaDONE 10 MG PO SCH (05:26)
[2023-03-05] MEDS: diazePAM 5 MG TABLET PO SCH ×3 (05:27→22:23)
[2023-03-05] MEDS: PRENATAL VITAMINS W/ FOLIC ACID TABLET (FP) PO SCH (10:23)
[2023-03-05] MEDS: IBUPROFEN 600 MG TABLET (FP) PO PRN ×3 (10:25→22:26)
[2023-03-05] MEDS: diazePAM 5 MG TABLET PO PRN ×2 (10:26→17:29)
[2023-03-05] MEDS: THIAMINE HCL 100 MG TABLET (FP) PO SCH (22:23)
[2023-03-05] MEDS: MELATONIN 5 MG TABLETS PO PRN (22:24)
[2023-03-06] MEDS: methaDONE 80 MG, methaDONE 10 MG PO SCH (05:37)
[2023-03-06] MEDS ORDERED: diazePAM 5 MG TABLET PO SCH (06:00)
[2023-03-06 06:55] VITALS: RESP 16
[2023-03-06 09:03] VITALS: BP 146/96; PULSE 63; TEMP 97.7
[2023-03-06] MEDS: PRENATAL VITAMINS W/ FOLIC ACID TABLET (FP) PO SCH (09:45)
[2023-03-07] MEDS ORDERED: diazePAM 5 MG TABLET PO ONE (06:00)
== END 2023-03-06 10:04 | disposition home or self-care (01) | DRG 773 ==
LOC: YASAS 12:53 → Y3N 17:07
PROVIDERS: ADMIT Allergy & Immunology; ATTEND Surgery
PROC: HZ2ZZZZ Detoxification Services for Substance Abuse Treatment (ICD-10-PCS; principal; 2023-03-03)
DX: F10.230 Alcohol dependence with withdrawal, uncomplicated (principal); F13.20 Sedative, hypnotic or anxiolytic dependence, uncomplicated; F11.20 Opioid dependence, uncomplicated; F17.210 Nicotine dependence, cigarettes, uncomplicated; D64.9 Anemia, unspecified; I10 Essential (primary) hypertension; K21.9 Gastro-esophageal reflux disease without esophagitis; M54.50 Low back pain, unspecified; G89.29 Other chronic pain; N40.0 Benign prostatic hyperplasia without lower urinary tract symptoms; Z86.69 Personal history of other diseases of the nervous system and sense organs; Z86.19 Personal history of other infectious and parasitic diseases
CPT/HCPCS: 36415; 80053; 85027; 86593; 86780; C9803-CS; U0003; U0005

== ENCOUNTER 2023-06-09 12:24 | Inpatient (IN) | payer OTHER, BC ==
[2023-06-09 13:50] VITALS: BMI 24.1
[2023-06-09] MEDS ORDERED: BENZOCAINE/MENTHOL (CHLORASEPTIC ) LOZENGE MM PRN (14:42)
[2023-06-09] MEDS ORDERED: BENZONATATE 200 MG CAPSULE PO PRN (14:42)
[2023-06-09] MEDS ORDERED: COLLOIDAL OATMEAL 1 BAR EACH TP PRN (14:42)
[2023-06-09] MEDS ORDERED: POLYETHYLENE GLYCOL (HEALTHYLAX) 3350 17 GM PACKET PO PRN (14:42)
[2023-06-09] MEDS ORDERED: LOPERAMIDE HCL 2 MG CAPSULE PO PRN (14:42)
[2023-06-09] MEDS ORDERED: guaiFENesin 600 MG TABLET.ER (FP) PO PRN (14:42)
[2023-06-09] MEDS ORDERED: NALOXONE HCL 0.4 MG/ML VIAL IM PRN (14:42)
[2023-06-09] MEDS ORDERED: AMMONIUM LACTATE 12% LOTION 225 GM BOTTLE TP PRN (14:42)
[2023-06-09] MEDS ORDERED: NALOXONE HCL (KLOXXADO) 8 MG SPRAY NS PRN (14:42)
[2023-06-09] MEDS ORDERED: MAGNESIUM HYDROX 2400MG/30ML ORAL SUSPENSION 30 ML CUP PO PRN (14:42)
[2023-06-09] MEDS ORDERED: ACETAMINOPHEN 325 MG TABLET (FP) PO PRN (14:42)
[2023-06-09] MEDS ORDERED: MAG HYDROX/AL HYDROX/SIMETH 30 ML UNIT-DOSE CUP PO PRN (14:42)
[2023-06-09] MEDS ORDERED: methaDONE HCL 10 MG TABLET PO SCH ×2 (14:50→17:17)
[2023-06-09] MEDS ORDERED: TUBERCULIN PPD 5 TU/0.1ML VIAL ID ONE (17:21)
[2023-06-09 17:30] LABS: HEMATOCRIT 39.2 % (35.4-49); HEMOGLOBIN 12.7 GM/dL (11.7-16.9); MCH 30.9 pg (25.7-33.7); MCHC 32.3 g/dl (32.0-35.9); MEAN CELL VOLUME 95.5 fl (80-96); MEAN PLT VOLUME 7.6 fl (7.5-11.1); PLATELET COUNT 438 10^3/uL (134-434); WHITE BLOOD COUNT 15.6 K/mm3 (4.0-10.0)
[2023-06-09 17:33] LABS: POTASSIUM 4.3 mmol/L (3.5-5.1)
[2023-06-09 17:39] LABS: ALBUMIN 4.2 g/dl (3.4-5.0)
[2023-06-09 17:40] LABS: BLOOD UREA NITROGEN 24.2 mg/dL (7-18)
[2023-06-09 17:44] LABS: CREATININE 1.4 mg/dL (0.55-1.3)
[2023-06-09 17:45] LABS: BILIRUBIN,TOTAL 0.2 mg/dL (0.2-1); TOT PROT 8.5 g/dl (6.4-8.2)
[2023-06-09] MEDS: methaDONE HCL 10 MG TABLET PO SCH (18:53)
[2023-06-09] MEDS: PRENATAL VITAMINS W/ FOLIC ACID TABLET (FP) PO SCH (18:54)
[2023-06-09] MEDS: NICOTINE 14 MG/24 HOURS TOPICAL PATCH TD SCH (18:54)
[2023-06-09 19:28] LABS: URINE APPEARANCE CLEAR; URINE BILIRUBIN NEGATIVE (NEGATIVE); URINE COLOR DK YELLOW; URINE GLUCOSE (UA) NEGATIVE (NEGATIVE); URINE KETONE NEGATIVE (NEGATIVE); URINE LEUK ESTERASE NEGATIVE (NEGATIVE); URINE NITRITE NEGATIVE (NEGATIVE); URINE PROTEIN TRACE (NEGATIVE); URINE UROBILINOGEN 0.2 mg/dL (0.2-1.0)
[2023-06-09] MEDS: SUVOREXANT 10 MG TABLET PO PRN (21:29)
[2023-06-09] MEDS: THIAMINE HCL 100 MG TABLET (FP) PO SCH (21:29)
[2023-06-09] MEDS ORDERED: MELATONIN 5 MG TABLETS PO SCH (22:00)
[2023-06-09 22:20] LABS: SYPHILIS W/ RPR CONF EQUIVOCAL (NONREACTIVE)
[2023-06-10] MEDS: methaDONE HCL 10 MG TABLET PO SCH (06:06)
[2023-06-10] MEDS: PRENATAL VITAMINS W/ FOLIC ACID TABLET (FP) PO SCH (09:41)
[2023-06-10] MEDS: hydrOXYzine PAMOATE 25 MG CAPSULE (FP) PO PRN (09:42)
[2023-06-10] MEDS: NICOTINE 14 MG/24 HOURS TOPICAL PATCH TD SCH (09:42)
[2023-06-10] MEDS: IBUPROFEN 600 MG TABLET (FP) PO PRN ×2 (09:43→21:30)
[2023-06-10] MEDS ORDERED: amLODIPine BESYLATE 10 MG TABLET (FP) PO SCH (14:06)
[2023-06-10] MEDS ORDERED: FAMOTIDINE 20 MG TABLET PO SCH (14:30)
[2023-06-10] MEDS: amLODIPine BESYLATE 10 MG TABLET (FP) PO SCH (14:34)
[2023-06-10] MEDS ORDERED: GABAPENTIN 100 MG CAPSULE PO SCH (14:45)
[2023-06-10] MEDS ORDERED: ONDANSETRON *ODT* 4 MG TABLET SL PRN (14:48)
[2023-06-10] MEDS ORDERED: DICYCLOMINE HCL 10 MG CAPSULE PO PRN (14:48)
[2023-06-10] MEDS: THIAMINE HCL 100 MG TABLET (FP) PO SCH (21:28)
[2023-06-10] MEDS: BACLOFEN 10 MG TABLET (FP) PO PRN (21:28)
[2023-06-10] MEDS: OXYMETAZOLINE 0.05% NASAL SOLUTION 15 ML BOTTLE NS SCH (21:32)
[2023-06-11] MEDS: methaDONE HCL 10 MG TABLET PO SCH (06:44)
[2023-06-11] MEDS ORDERED: amLODIPine BESYLATE 10 MG TABLET (FP) PO SCH (10:00)
[2023-06-11 10:12] LABS: POTASSIUM 4.6 mmol/L (3.5-5.1)
[2023-06-11] MEDS: PRENATAL VITAMINS W/ FOLIC ACID TABLET (FP) PO SCH (10:19)
[2023-06-11] MEDS: amLODIPine BESYLATE 10 MG TABLET (FP) PO SCH (10:19)
[2023-06-11] MEDS: OXYMETAZOLINE 0.05% NASAL SOLUTION 15 ML BOTTLE NS SCH ×2 (10:19→22:00)
[2023-06-11 10:20] LABS: MCH 30.9 pg (25.7-33.7); MCHC 31.6 g/dl (32.0-35.9); MEAN CELL VOLUME 97.8 fl (80-96); MEAN PLT VOLUME 7.8 fl (7.5-11.1); PLATELET COUNT 388 10^3/uL (134-434); RBC 3.89 M/mm3 (4.00-5.60); RDW 12.6 % (11.9-15.9); WHITE BLOOD COUNT 7.5 K/mm3 (4.0-10.0)
[2023-06-11] MEDS: hydrOXYzine PAMOATE 25 MG CAPSULE (FP) PO PRN ×3 (10:20→22:01)
[2023-06-11] MEDS: NICOTINE 14 MG/24 HOURS TOPICAL PATCH TD SCH (10:20)
[2023-06-11 10:22] LABS: BLOOD UREA NITROGEN 26.3 mg/dL (7-18); CALCIUM 9.3 mg/dL (8.5-10.1)
[2023-06-11 10:25] LABS: CREATININE 1.1 mg/dL (0.55-1.3)
[2023-06-11 10:26] LABS: BILIRUBIN,TOTAL 0.4 mg/dL (0.2-1); TOT PROT 7.2 g/dl (6.4-8.2)
[2023-06-11 10:28] LABS: ALBUMIN 3.4 g/dl (3.4-5.0)
[2023-06-11] MEDS: BACLOFEN 10 MG TABLET (FP) PO PRN (19:07)
[2023-06-11] MEDS: THIAMINE HCL 100 MG TABLET (FP) PO SCH (22:00)
[2023-06-11] MEDS: SUVOREXANT 10 MG TABLET PO PRN (22:03)
[2023-06-12] MEDS: methaDONE HCL 10 MG TABLET PO SCH (06:18)
[2023-06-12] MEDS: PRENATAL VITAMINS W/ FOLIC ACID TABLET (FP) PO SCH (09:57)
[2023-06-12] MEDS: OXYMETAZOLINE 0.05% NASAL SOLUTION 15 ML BOTTLE NS SCH ×2 (09:58→21:35)
[2023-06-12] MEDS: amLODIPine BESYLATE 10 MG TABLET (FP) PO SCH (09:58)
[2023-06-12] MEDS: hydrOXYzine PAMOATE 25 MG CAPSULE (FP) PO PRN ×3 (10:00→21:36)
[2023-06-12] MEDS: IBUPROFEN 600 MG TABLET (FP) PO PRN ×2 (10:00→19:11)
[2023-06-12] MEDS: BACLOFEN 10 MG TABLET (FP) PO PRN (10:00)
[2023-06-12] MEDS: NICOTINE 14 MG/24 HOURS TOPICAL PATCH TD SCH (10:01)
[2023-06-12] MEDS: THIAMINE HCL 100 MG TABLET (FP) PO SCH (21:35)
[2023-06-12] MEDS: SUVOREXANT 10 MG TABLET PO PRN (21:36)
[2023-06-13] MEDS: methaDONE HCL 10 MG TABLET PO SCH (06:18)
[2023-06-13] MEDS: hydrOXYzine PAMOATE 25 MG CAPSULE (FP) PO PRN ×3 (06:19→21:13)
[2023-06-13] MEDS: IBUPROFEN 400 MG TABLET (FP) PO PRN (06:19)
[2023-06-13] MEDS: amLODIPine BESYLATE 10 MG TABLET (FP) PO SCH (09:55)
[2023-06-13] MEDS: OXYMETAZOLINE 0.05% NASAL SOLUTION 15 ML BOTTLE NS SCH ×2 (09:55→21:15)
[2023-06-13] MEDS: PRENATAL VITAMINS W/ FOLIC ACID TABLET (FP) PO SCH (09:55)
[2023-06-13] MEDS: BACLOFEN 10 MG TABLET (FP) PO PRN ×2 (09:56→21:13)
[2023-06-13] MEDS: NICOTINE 14 MG/24 HOURS TOPICAL PATCH TD SCH (11:48)
[2023-06-13] MEDS: IBUPROFEN 600 MG TABLET (FP) PO PRN (15:56)
[2023-06-13] MEDS: THIAMINE HCL 100 MG TABLET (FP) PO SCH (21:13)
[2023-06-13] MEDS: SUVOREXANT 10 MG TABLET PO PRN (21:15)
[2023-06-14] MEDS: IBUPROFEN 400 MG TABLET (FP) PO PRN (04:43)
[2023-06-14] MEDS: methaDONE HCL 10 MG TABLET PO SCH (06:18)
[2023-06-14 06:38] VITALS: RESP 18
[2023-06-14] MEDS: BACLOFEN 10 MG TABLET (FP) PO PRN ×2 (09:54→19:37)
[2023-06-14] MEDS: hydrOXYzine PAMOATE 25 MG CAPSULE (FP) PO PRN ×2 (09:54→16:45)
[2023-06-14] MEDS: TAMSULOSIN HCL 0.4 MG CAP PO SCH (09:54)
[2023-06-14] MEDS: amLODIPine BESYLATE 10 MG TABLET (FP) PO SCH (09:54)
[2023-06-14] MEDS: PRENATAL VITAMINS W/ FOLIC ACID TABLET (FP) PO SCH (09:54)
[2023-06-14] MEDS: OXYMETAZOLINE 0.05% NASAL SOLUTION 15 ML BOTTLE NS SCH ×2 (09:55→21:04)
[2023-06-14] MEDS: NICOTINE 14 MG/24 HOURS TOPICAL PATCH TD SCH (09:55)
[2023-06-14] MEDS: IBUPROFEN 600 MG TABLET (FP) PO PRN (16:46)
[2023-06-14] MEDS: SUVOREXANT 10 MG TABLET PO PRN (21:03)
[2023-06-14] MEDS: THIAMINE HCL 100 MG TABLET (FP) PO SCH (21:03)
[2023-06-15] MEDS: BACLOFEN 10 MG TABLET (FP) PO PRN (04:19)
[2023-06-15] MEDS: methaDONE HCL 10 MG TABLET PO SCH (05:56)
[2023-06-15 06:52] VITALS: TEMP 96.3
[2023-06-15] MEDS: TAMSULOSIN HCL 0.4 MG CAP PO SCH (09:00)
[2023-06-15] MEDS: PRENATAL VITAMINS W/ FOLIC ACID TABLET (FP) PO SCH (09:00)
[2023-06-15] MEDS: amLODIPine BESYLATE 10 MG TABLET (FP) PO SCH (09:00)
[2023-06-15] MEDS: OXYMETAZOLINE 0.05% NASAL SOLUTION 15 ML BOTTLE NS SCH (09:01)
[2023-06-15] MEDS: NICOTINE 14 MG/24 HOURS TOPICAL PATCH TD SCH (09:01)
[2023-06-15 10:45] VITALS: BP 126/87; PULSE 97
== END 2023-06-15 09:20 | disposition home or self-care (01) | DRG 895 ==
LOC: YASAS 12:24 → Y5N 15:38
PROVIDERS: ADMIT Allergy & Immunology; ATTEND Psychiatry & Neurology Pain Medicine
PROC: HZ42ZZZ Group Counseling for Substance Abuse Treatment, Cognitive-Behavioral (ICD-10-PCS; principal; 2023-06-09)
DX: F11.20 Opioid dependence, uncomplicated (principal); F13.20 Sedative, hypnotic or anxiolytic dependence, uncomplicated; N17.9 Acute kidney failure, unspecified; F10.10 Alcohol abuse, uncomplicated; F17.210 Nicotine dependence, cigarettes, uncomplicated; F41.9 Anxiety disorder, unspecified; F32.A Depression, unspecified; G40.909 Epilepsy, unspecified, not intractable, without status epilepticus; I10 Essential (primary) hypertension; K21.9 Gastro-esophageal reflux disease without esophagitis; D72.829 Elevated white blood cell count, unspecified; M17.11 Unilateral primary osteoarthritis, right knee; M19.021 Primary osteoarthritis, right elbow; M54.50 Low back pain, unspecified; G89.29 Other chronic pain; N40.0 Benign prostatic hyperplasia without lower urinary tract symptoms
CPT/HCPCS: 36415; 80053; 81003; 85027; 86780; 86803; 87635; 87811; J0475